=== PATIENT | male | born 1950 | race Caucasian/White ===

== ENCOUNTER 2022-01-23 10:25 | Inpatient (IN) | payer MEDICARE, SELFPAY ==
--- NOTE | ~2022-01-23 | FL_ITS ---
EXAMINATION: XR FLUOROSCOPY WITH IMAGES CLINICAL INFORMATION: Right ureteral stent placement. COMPARISON: CT abdomen and pelvis from 01/23/2022 TECHNIQUE: Fluoroscopy time: 32.6 sec DAP: 16.29 mGy Images: [address] Perez. FL/FL guidance in OR FINDINGS AND IMPRESSION: Fluoroscopic imaging equipment utilized during right ureteral stent insertion. Please refer to the procedure report. The saved images show well-positioned stent in place.
--- NOTE | ~2022-01-23 | CT_ITS ---
EXAMINATION: CT ABDOMEN AND PELVIS WITHOUT CONTRAST CLINICAL INFORMATION: Right flank pain with hematuria. COMPARISON: None TECHNIQUE: Multidetector volumetric imaging was performed from the superior aspect of the liver through the pubic symphysis. Sagittal and coronal reformatted images were obtained on the technologist's workstation. This CT examination was performed using dose optimization techniques as appropriate, variously including the following: *Automated exposure control *Adjustment of mA and/or kV according to patient size (this includes techniques or standardized protocols for targeted exams where dose is matched to indication/reason for exam; i.e. extremities or head) *Use of iterative reconstruction technique DLP: None given to mGy-cm FINDINGS: LUNG BASES: There is some atelectatic change in the lingula. No pleural or pericardial effusion. Heart normal size. Coronary artery calcification is present. LIVER, GALLBLADDER, AND BILIARY TREE: There are a few scattered low density lesions within the liver consistent with small cysts. No intrahepatic biliary ductal dilatation is present. The gallbladder is unremarkable with no evidence of radiopaque gallstones, gallbladder wall thickening, or obvious pericholecystic inflammatory changes. PANCREAS: Unremarkable. SPLEEN: Unremarkable. ADRENAL GLANDS: Unremarkable. KIDNEYS AND URETERS: There is mild right hydronephrosis. There is a 4 mm nonobstructing lower pole calculus. Perinephric stranding is present. There is hydroureter down to an obstructing calculus within the mid right ureter measuring approximately 8 x 5 mm in size with Hounsfield unit measurement of greater than 1200. Within the left ureter there is a nonobstructing 2 mm calculus within the lower pole. There are a few left renal cysts present. No left hydronephrosis or hydroureter is evident. There is perinephric stranding present. BLADDER: There is a 7 mm right anterior bladder diverticulum seen. GASTROINTESTINAL TRACT: No dilated loops of large or small bowel are evident. No free air or free fluid. There is a small hiatal hernia. No colonic or pericolonic inflammatory changes seen. The appendix appears unremarkable. ABDOMINAL WALL: Small fat-containing umbilical hernia. LYMPH NODES: No lymphadenopathy seen. VASCULAR: Mild aortoiliac plaque. No abdominal aortic aneurysm. PELVIC VISCERA: Prostate calcifications present. No suspicious mass. OSSEOUS STRUCTURES: No suspicious destructive bony lesions identified. Degenerative disc disease seen at the L5-S1 level. CT/CT abdomen pelvis wo con IMPRESSION: 8 x 5 mm mid right ureteral obstructing calculus with mild right hydronephrosis and hydroureter down to this point. Bilateral nephrolithiasis. 7 mm right anterior bladder diverticulum. Hepatic cysts. Significant degenerative disc disease L5-S1. Fleischner guidelines were followed.
[2022-01-23 10:34] VITALS: BP 165/80; PULSE 62; RESP 16; TEMP 36.4; O2SAT 97; BMI 30.5
[2022-01-23] MEDS: Acetaminophen 325 MG TABLET 975 MG PO (10:51)
[2022-01-23] MEDS: Ondansetron ODT 4 MG TAB.RAPDIS TRANSLINGU (10:51)
[2022-01-23 10:55] LABS: MANUAL DIFF FLAG NO
[2022-01-23 10:56] LABS: Appearance Urine CLEAR; Color Urine YELLOW; Glucose Urine UA 500 MG/DL (NEG); Leukocyte Esterase Urine NEG (NEG); Nitrite Urine NEG (NEG); PH 5.5 (5.0-8.0); Specific Gravity - Urine >= 1.030 (1.005-1.025); UACC Culture Trigger NO; Urine Blood 2+ (NEG); Urine Ketones 15 MG/DL (NEG); Urine Protein NEG (NEG-TRACE)
[2022-01-23 10:58] LABS: Basophils Percent Auto 0.2 % (0-2); Eosinophils Percent Auto 0.1 % (0-4); Hematocrit 42.6 % (42.0-52.0); Hemoglobin 14.2 g/dl (14.0-18.0); Imm Gran Abs Auto 0.09 X10*3/uL (0.00-0.03); Imm Gran Pct Auto 0.5 % (0.0-0.4); Lymphocytes Absolute Auto 1.3 X10*3/uL (1.2-4.9); Mean Corpuscular HGB Conc 33.3 g/dl (31.0-36.0); Mean Corpuscular Hemoglobin 30.3 pg (27.0-33.0); Mean Platelet Volume 10.3 fL (9.4-12.4); Monocytes Absolute Auto 0.9 X10*3/uL (0.1-1.2); Monocytes Percent Auto 5.2 % (2-11); Neutrophils Absolute Auto 15.6 x10*3/uL (2.0-8.3); Platelet Count 332 X10*3/uL (160-400); Red Blood Count 4.68 X10*6/uL (4.60-5.80); Red Cell Distribution Width 12.8 % (11.0-16.0)
[2022-01-23 11:08] LABS: Squamous Epithelial Cell Urine TRACE /LPF; WBC Urine 0-2 /HPF (0-4)
[2022-01-23 11:19] LABS: Anion Gap 16 (12-20); Blood Urea Nitrogen 29 mg/dL (9-16); Calcium 9.7 mg/dL (8.4-10.2); Carbon Dioxide 25 mmol/L (22-29); Chloride 99 mmol/L (96-108); Creatinine Clr Calc Pharmacy 52.9; Estimated Glomerular Filt Rate 44; Glucose Random 293 mg/dL (60-115); Potassium 4.4 mmol/L (3.3-5.1); Sodium 136 mmol/L (135-145)
--- NOTE | 2022-01-23 12:48 | ED.BACK ---
HPI - Back Pain/Injury General Chief Complaint: Back Pain/Injury Stated Complaint: side pain Time Seen by Provider: 01/23/22 12:39 Source: patient Mode of arrival: ambulatory Limitations: no limitations History of Present Illness HPI Narrative: 71-year-old male with history of renal colic, AFib, diabetes, rheumatoid arthritis on methotrexate here with reports of right-sided abdominal pain since last evening with nausea. No vomiting, urinary symptoms, diarrhea, constipation, fevers or chills. History of renal colic and feels similar. Patient tells me since being in the waiting room the pain has subsided Related Data Allergies Allergy/AdvReac Type Severity Reaction Status Date / Time No Known Allergies Allergy Verified 01/23/22 10:33 Review of Systems Review of Systems: Yes all other systems are reviewed and are negative Constitutional: Constitutional: Reports no additional constitutional complaints, Denies body ache(s), Denies chills, Denies fever(s), Denies headache(s) and Denies weakness Eyes: Eyes: Reports no additional eye complaints and Denies change in vision ENT: Reports system reviewed and no additional complaints, except as documented, Denies dizziness, Denies headache(s), Denies nasal congestion, Denies nasal discharge and Denies neck pain Cardiovascular: Cardiovascular: Reports no additional cardiovascular complaints, Denies chest pain, Denies leg edema and Denies dyspnea Respiratory: Respiratory: Reports no additional respiratory complaints, Denies cough and Denies dyspnea Gastrointestinal: Gastrointestinal: Reports no additional gastrointestinal complaints, Reports abdominal pain, Denies diarrhea, Reports nausea and Denies vomiting Genitourinary: Genitourinary: Denies urinary incontinence Musculoskeletal: Musculoskeletal: Reports no additional musculoskeletal complaints, Denies back pain, Denies arthralgias, Denies joint swelling, Denies neck pain, Denies numbness and Denies tingling Integumentary/Breasts: Skin/Breast: Reports system reviewed and no additional complaints, except as docu and Denies rash Neurologic: Reports system reviewed and no additional complaints, except as documented, Denies dizziness, Denies headache(s), Denies numbness, Denies tingling and Denies weakness PMFSH Past Medical History Attestation statement: The following information was validated with the patient. Source: old records reviewed and nursing notes reviewed Medical History A-fib Diabetes Kidney calculi Psoriasis Rheumatoid arthritis Social History Social History Advance Directives: No Advance Directives Information Provided: No Physical Exam Vital Signs: Vital Signs: Last Vital Signs Temp 97.6 F 01/23/22 10:34 Pulse 69 01/23/22 15:51 Resp 16 01/23/22 15:51 BP 141/77 H 01/23/22 15:51 Pulse Ox 97 01/23/22 15:51 BMI result Body Mass Index 30.5 Const: General: cooperative, healthy appearing, comfortable and no acute distress Orientation/consciousness: patient oriented x3 Limitations: no limitations HEENT: Head: Yes normal to inspection Ears: hearing grossly normal bilaterally General nose exam: Normal external nose present Face and sinus: Yes normal facial exam Mouth: Normal oral and palatal mucosa present Teeth and gingiva: dentition normal Throat: Yes posterior oropharynx normal, Yes tonsils normal and Yes uvula midline Eyes: General: appearance normal, both eyes and all related structures EOM: EOMs intact bilaterally Neck: Neck: Yes normal visual inspection, Yes full ROM, Yes no lymphadenopathy and Yes no meningeal signs Chest: Chest palpation & inspection: normal inspection of the chest Resp: Effort & Inspection: normal respiratory effort Auscultation: clear to auscultation bilaterally Cardio: Rate: regular rate Rhythm: regular rhythm Peripheral pulses: Peripheral pulses 2+ throughout GI: Inspection: Yes normal to inspection Palpation (GI): Soft to palpation and nontender : General: Yes no CVA tenderness Back/Spine/Pelvis: Back: no CVA tenderness Thoracic/Lumbar Spine: thoracic and lumbar spine normal to inspection Skin: General skin exam: no rashes or lesions noted Neuro: General: patient oriented x3, moves all extremities and no meningeal signs Extrem: General: Yes normal to inspection, Yes no pedal edema and Yes no calf tenderness Course Course Course Narrative: 72-year-old man here with reports of right pain with nausea since last night but resolved while the patient was waiting in the waiting room with a history of renal colic will check labs, UA, CT Reevaluation(s) Reevaluation #1: labs show mildly elevated creatinine and the BUN. No previous for comparison. Will give 1 L of fluid and reassess. mild hyperglycemia. Patient has underlying diabetes no evidence of DKA. mild leukocytosis likely reactive. Not for infection. CT shows a right-sided 8 x 5 mm mid ureter obstructive stone. Patient has no pain. will need urology follow-up and will d/w them prior to dispo Time: 13:50 Reevaluation #2: unfortunately the patient's creatinine and BUN are not improved. I spoke to Urology on-call Dr. Perez. Recommended admission with IV fluids and antibiotics and. Observation to determine if stone will pass independently. If not he will perform an intervention. Call out to Medicine to discuss for admission. at this time infection suspected. blood cultures and lactic acid ordered..Antibiotics ordered. Time: 15:45 MDM - Back Pain/Injury Medical Records Attestation: I reviewed the patient's medical records. Lab Data Attestation: I reviewed the patient's lab results. Result diagrams: 01/23/22 10:48 01/23/22 14:52 Labs: Lab Results 01/23/22 01/23/22 01/23/22 Range/Units 10:48 10:48 10:48 WBC 18.0 H (4.8-10.8) X10*3/uL RBC 4.68 (4.60-5.80) X10*6/uL Hgb 14.2 (14.0-18.0) g/dl Hct 42.6 (42.0-52.0) % MCV 91.0 (80.0-98.0) fL MCH 30.3 (27.0-33.0) pg MCHC 33.3 (31.0-36.0) g/dl RDW 12.8 (11.0-16.0) % Plt Count 332 (160-400) X10*3/uL MPV 10.3 (9.4-12.4) fL Immature Gran % (Auto) 0.5 H (0.0-0.4) % Neut % (Auto) 87.0 H (45-73) % Lymph % (Auto) 7.0 L (20-40) % [place] % (Auto) 5.2 (2-11) % Eos % (Auto) 0.1 (0-4) % Baso % (Auto) 0.2 (0-2) % Lymph # (Auto) 1.3 (1.2-4.9) X10*3/uL [place] # (Auto) 0.9 (0.1-1.2) X10*3/uL Eos # (Auto) 0.0 (0.0-0.4) X10*3/uL Baso # (Auto) 0.0 (0.0-0.2) X10*3/uL Abs Immat Gran (auto) 0.09 H (0.00-0.03) X10*3/uL Absolute Neuts (auto) 15.6 H (2.0-8.3) x10*3/uL Absolute Nucleated RBC 0.000 (0.0-0.012) X10*3/uL Nucleated RBC % (auto) 0.0 (0.0-0.2) /100WBC Sodium 136 (135-145) mmol/L Potassium 4.4 (3.3-5.1) mmol/L Chloride 99 (96-108) mmol/L Carbon Dioxide 25 (22-29) mmol/L Anion Gap 16 (12-20) BUN 29 H (9-16) mg/dL Creatinine 1.56 H (0.5-1.4) mg/dL Estim Creat Clear Calc 52.9 Estimated GFR 44 Random Glucose 293 H (60-115) mg/dL Calcium 9.7 (8.4-10.2) mg/dL Total Bilirubin 0.3 (0.0-1.0) mg/dL Direct Bilirubin 0.2 (0.0-0.5) mg/dL AST 12 (5-37) U/L ALT 13 (0-40) U/L Alkaline Phosphatase 83 (39-117) U/L Total Protein 7.3 (6.5-8.0) g/dL Albumin 4.2 (3.5-5.0) g/dL Urine Color YELLOW Urine Appearance CLEAR Urine pH 5.5 (5.0-8.0) Ur Specific [place] >= 1.030 H (1.005-1.025) Urine Protein NEG (NEG-TRACE) MG/DL Urine Glucose (UA) 500 H (NEG) MG/DL Urine Ketones 15 (NEG) MG/DL Urine Blood 2+ H (NEG) Urine Nitrite NEG (NEG) Ur Leukocyte Esterase NEG (NEG) Urine RBC 5-9 H (0) /HPF Urine WBC 0-2 (0-4) /HPF Ur Squamous Epith Cells TRACE /LPF Urine Bacteria NONE /LPF 01/23/22 Range/Units 14:52 WBC (4.8-10.8) X10*3/uL RBC (4.60-5.80) X10*6/uL Hgb (14.0-18.0) g/dl Hct (42.0-52.0) % MCV (80.0-98.0) fL MCH (27.0-33.0) pg MCHC (31.0-36.0) g/dl RDW (11.0-16.0) % Plt Count (160-400) X10*3/uL MPV (9.4-12.4) fL Immature Gran % (Auto) (0.0-0.4) % Neut % (Auto) (45-73) % Lymph % (Auto) (20-40) % [place] % (Auto) (2-11) % Eos % (Auto) (0-4) % Baso % (Auto) (0-2) % Lymph # (Auto) (1.2-4.9) X10*3/uL [place] # (Auto) (0.1-1.2) X10*3/uL Eos # (Auto) (0.0-0.4) X10*3/uL Baso # (Auto) (0.0-0.2) X10*3/uL Abs Immat Gran (auto) (0.00-0.03) X10*3/uL Absolute Neuts (auto) (2.0-8.3) x10*3/uL Absolute Nucleated RBC (0.0-0.012) X10*3/uL Nucleated RBC % (auto) (0.0-0.2) /100WBC Sodium 138 (135-145) mmol/L Potassium 4.5 (3.3-5.1) mmol/L Chloride 102 (96-108) mmol/L Carbon Dioxide 26 (22-29) mmol/L Anion Gap 15 (12-20) BUN 31 H (9-16) mg/dL Creatinine 1.46 H (0.5-1.4) mg/dL Estim Creat Clear Calc 56.5 Estimated GFR 47 Random Glucose 233 H (60-115) mg/dL Calcium 9.4 (8.4-10.2) mg/dL Total Bilirubin (0.0-1.0) mg/dL Direct Bilirubin (0.0-0.5) mg/dL AST (5-37) U/L ALT (0-40) U/L Alkaline Phosphatase (39-117) U/L Total Protein (6.5-8.0) g/dL Albumin (3.5-5.0) g/dL Urine Color Urine Appearance Urine pH (5.0-8.0) Ur Specific [place] (1.005-1.025) Urine Protein (NEG-TRACE) MG/DL Urine Glucose (UA) (NEG) MG/DL Urine Ketones (NEG) MG/DL Urine Blood (NEG) Urine Nitrite (NEG) Ur Leukocyte Esterase (NEG) Urine RBC (0) /HPF Urine WBC (0-4) /HPF Ur Squamous Epith Cells /LPF Urine Bacteria /LPF Imaging Data CT scan - abdomen: Attestation: I personally reviewed and interpreted this imaging study as follows: Radiologist's impression: IMPRESSION: 8 x 5 mm mid right ureteral obstructing calculus with mild right hydronephrosis and hydroureter down to this point. ? Bilateral nephrolithiasis. ? 7 mm right anterior bladder diverticulum. ? Hepatic cysts. ? Significant degenerative disc disease L5-S1.? ? Fleischner guidelines were followed. Discharge Plan Discharge Clinical Impression: Renal colic, Leukocytosis Patient Disposition: Admitted As Inpatient
[2022-01-23 13:08] LABS: Alanine Aminotransferase 13 U/L (0-40); Albumin Level 4.2 g/dL (3.5-5.0); Alkaline Phosphatase 83 U/L (39-117); Aspartate Amino Transferase 12 U/L (5-37); Bilirubin Direct 0.2 mg/dL (0.0-0.5); Bilirubin Total 0.3 mg/dL (0.0-1.0); Total Protein 7.3 g/dL (6.5-8.0)
[2022-01-23] MEDS: 0.9 % Sodium Chloride 1,000 ML 999 ML IV (13:58)
--- NOTE | 2022-01-23 14:12 | PC.NURSE ---
nadm ns infusing, skin wpd, no n/v, alert, aware of care plan
[2022-01-23 15:22] LABS: Anion Gap 15 (12-20); Blood Urea Nitrogen 31 mg/dL (9-16); Calcium 9.4 mg/dL (8.4-10.2); Carbon Dioxide 26 mmol/L (22-29); Chloride 102 mmol/L (96-108); Creatinine Clr Calc Pharmacy 56.5; Estimated Glomerular Filt Rate 47; Glucose Random 233 mg/dL (60-115); Potassium 4.5 mmol/L (3.3-5.1); Sodium 138 mmol/L (135-145)
[2022-01-23 15:51] VITALS: BP 141/77; PULSE 69; RESP 16; O2SAT 97
--- NOTE | 2022-01-23 16:12 | P.HPHOSP_ITS ---
History of Present Illness Date of Service: 01/23/22 Attending physician on admission: [facility] Chief Complaint: Flank pain This is a 71-year-old male who presents to the emergency department with flank pain. Patient states that his pain began last evening around 17:00 the pain is located in his right groin and radiates part way around his abdomen to his back. The pain is associated with nausea. He denies any vomiting, fever, chills. He has had kidney stones in the past and the pain is similar to previous episodes but more severe. For this reason he presented to the emergency department for evaluation CT scan in the emergency department showed a large right-sided kidney stone with associated mild hydronephrosis. Lab work was significant for elevated white count at 18,000, he has remained afebrile. Creatinine was elevated at 1.56, patient denies any known history of renal dysfunction. He was treated with empiric antibiotics, , antiemetics and IV fluid. The case was discussed with Urology who recommended admission to the medicine team. Review of Systems Review of Systems: Yes all other systems are reviewed and are negative Constitutional: Constitutional: Denies chills and Denies fever(s) Cardiovascular: Cardiovascular: Denies chest pain, Denies palpitations and Denies dyspnea Respiratory: Respiratory: Denies cough and Denies dyspnea Gastrointestinal: Gastrointestinal: Reports abdominal pain, Denies diarrhea, Reports nausea and Denies vomiting Genitourinary: Genitourinary: Denies dysuria Endocrine: Endocrine: Denies palpitations [facility] Medical History (Updated 01/23/22 @ 16:15 by EVANGELIST Harman) A-fib Diabetes HTN (hypertension) Kidney calculi Psoriasis Rheumatoid arthritis Functional capacity: independent ambulation Family History Brother Heart disease Social History (Updated 01/23/22 @ 16:19 by EVANGELIST Harman) Alcohol intake: never Patient Tobacco Use Status: Never used Tobacco Use of substances other than those prescribed or required for medical reasons: No Advance Directives: No Advance Directives Information Provided: No Meds Allergies Allergy/AdvReac Type Severity Reaction Status Date / Time No Known Allergies Allergy Verified 01/23/22 10:33 Active Medications: Current Medications Acetaminophen (Acetaminophen 325 Mg Tablet) 650 mg PO Q6H PRN PRN Reason: Pain, Mild (Pain Scale 1-3) Dextrose (Dextrose 50 % 25 Gm/50 Ml Syringe) 25 gm IVPUSH Q15M PRN; Protocol PRN Reason: per Hypoglycemia Standing Ord. Docusate Sodium (Docusate Sodium 100 Mg Capsule) 100 mg PO DAILY PRN PRN Reason: Constipation Glucose (Glucose Gel 15 Gm Gel..Gram.) 15 gm PO Q15M PRN; Protocol PRN Reason: per Hypoglycemia Standing Ord. Ceftriaxone Sodium 1 gm/ (Sodium Chloride) 50 mls @ 100 mls/hr IV Q24H [facility] Lactated Ringer's (Lr) 1,000 mls @ 100 mls/hr IVCONT .Q10H [facility] Insulin Human Lispro (Insulin Lispro 100 Unit/Ml 3 Ml Vial) 0 unit SUBCUT QIDACHS [facility]; Protocol Morphine Sulfate (Morphine Sulfate 2 Mg/Ml Cartridge) 2 mg IVPUSH Q4H PRN; Protocol PRN Reason: Pain, Severe (Pain Scale 7-10) Ondansetron HCl (Ondansetron Hcl 4 Mg/2 Ml Vial) 4 mg IVPUSH Q8H PRN PRN Reason: Nausea and Vomiting Pharmacy Consult (Consult Rx Perform Med Rec) 1 each MISCELLANE ONCE PRN PRN Reason: Consult order Sodium Chloride (0.9 % Sodium Chloride Flush 3 Ml Syringe) [facility] Medications Medication Instructions Recorded Confirmed Last Taken Type dabigatran etexilate 150 mg 150 mg PO BID 01/23/22 01/23/22 01/23/22 History capsule (Pradaxa) flecainide 100 mg tablet 100 mg PO Q12H 01/23/22 01/23/22 01/23/22 History folic acid 1 mg tablet 1 mg PO DAILY 01/23/22 01/23/22 01/23/22 History glipizide 10 mg tablet 10 mg PO BID 01/23/22 01/23/22 01/23/22 History lisinopril 20 1 tab PO DAILY 01/23/22 01/23/22 01/23/22 History mg-hydrochlorothiazide 12.5 mg tablet metformin 1,000 mg tablet 1,000 mg PO BID 01/23/22 01/23/22 01/23/22 History methotrexate sodium 2.5 mg tablet 10 mg PO QWEEK 01/23/22 01/23/22 01/17/22 History metoprolol tartrate 50 mg tablet 75 mg PO BID 01/23/22 01/23/22 01/23/22 History pravastatin 80 mg tablet 80 mg PO DAILY 01/23/22 01/23/22 01/23/22 History Physical Exam Vital Signs and Narrative: Vital Signs: Last Vital Signs Temp 97.6 F 01/23/22 10:34 Pulse 69 01/23/22 15:51 Resp 16 01/23/22 15:51 BP 141/77 H 01/23/22 15:51 Pulse Ox 97 01/23/22 15:51 BMI result Body Mass Index 30.5 Const: General: cooperative, healthy appearing, comfortable, alert and awake Nutritional Appearance: overweight Orientation/consciousness: patient oriented x3 Eyes: Pupils: Equal, round and reactive pupils present Resp: Effort & Inspection: normal respiratory effort and able to speak in complete sentences Auscultation: clear to auscultation bilaterally Cardio: Rate: regular rate Heart sounds: S1 normal heart sound present and S2 normal heart sound present GI: Inspection: No distended Palpation (GI): Soft to palpation and nontender Neuro: General: patient oriented x3 and CN's II-XI intact bilaterally Cranial nerves: Yes Equal, round and reactive pupils present Extrem: General: Yes no pedal edema Results Labs CBC and Chem 7: 01/23/22 10:48 01/23/22 14:52 Labs: Laboratory Results - last 24 hr 01/23/22 01/23/22 01/23/22 10:48 10:48 10:48 MCV 91.0 MCH 30.3 MCHC 33.3 RDW 12.8 Plt Count 332 MPV 10.3 Immature Gran % (Auto) 0.5 H Neut % (Auto) 87.0 H Lymph % (Auto) 7.0 L [place] % (Auto) 5.2 Eos % (Auto) 0.1 Baso % (Auto) 0.2 Lymph # (Auto) 1.3 [place] # (Auto) 0.9 Eos # (Auto) 0.0 Baso # (Auto) 0.0 Abs Immat Gran (auto) 0.09 H Absolute Neuts (auto) 15.6 H Absolute Nucleated RBC 0.000 Nucleated RBC % (auto) 0.0 Anion Gap 16 Estim Creat Clear Calc 52.9 Estimated GFR 44 Random Glucose 293 H Calcium 9.7 Total Bilirubin 0.3 Direct Bilirubin 0.2 AST 12 ALT 13 Alkaline Phosphatase 83 Total Protein 7.3 Albumin 4.2 Urine Color YELLOW Urine Appearance CLEAR Urine pH 5.5 Ur Specific [place] >= 1.030 H Urine Protein NEG Urine Glucose (UA) 500 H Urine Ketones 15 Urine Blood 2+ H Urine Nitrite NEG Ur Leukocyte Esterase NEG Urine RBC 5-9 H Urine WBC 0-2 Ur Squamous Epith Cells TRACE Urine Bacteria NONE 01/23/22 14:52 MCV MCH MCHC RDW Plt Count MPV Immature Gran % (Auto) Neut % (Auto) Lymph % (Auto) [place] % (Auto) Eos % (Auto) Baso % (Auto) Lymph # (Auto) [place] # (Auto) Eos # (Auto) Baso # (Auto) Abs Immat Gran (auto) Absolute Neuts (auto) Absolute Nucleated RBC Nucleated RBC % (auto) Anion Gap 15 Estim Creat Clear Calc 56.5 Estimated GFR 47 Random Glucose 233 H Calcium 9.4 Total Bilirubin Direct Bilirubin AST ALT Alkaline Phosphatase Total Protein Albumin Urine Color Urine Appearance Urine pH Ur Specific [place] Urine Protein Urine Glucose (UA) Urine Ketones Urine Blood Urine Nitrite Ur Leukocyte Esterase Urine RBC Urine WBC Ur Squamous Epith Cells Urine Bacteria Imaging Radiologist's Impressions: Impressions Abdomen/Pelvis CT 01/23/22 13:04 IMPRESSION: 8 x 5 mm mid right ureteral obstructing calculus with mild right hydronephrosis and hydroureter down to this point. Bilateral nephrolithiasis. 7 mm right anterior bladder diverticulum. Hepatic cysts. Significant degenerative disc disease L5-S1. Fleischner guidelines were followed. Assessment and Plan (1) Renal colic: Status: Acute Plan This is a 71-year-old male with history of diabetes, rheumatoid arthritis recently started on methotrexate, hypertension, atrial fibrillation on Pradaxa who presents to the emergency department with right-sided flank pain found to have right kidney stones associated mild hydronephrosis renal colic secondary to right kidney stone with associated hydronephrosis Urology consultation, will likely need intervention given size of stone UA not suggestive of infection, but will continue empiric ceftriaxone for now IVF, antiemetics, IV analgesia Trend BMP will start flomax NPO at midnight for possible procedure tomorrow Renal insufficiency/possible KYLER pt denies h/o of known kidney disease, but no baseline renal function in system for comparison will hold Lisinopril/HCTZ for now follow renal function gentle IVF PAF Will hold pradaxa in anticipation of procedure Continue flecainide, metoprolol HTN lisinopril/HCTZ on hold for possible KYLER continue metoprolol monitor BP closely DM Hold metformin, glipizide SSI, POCs RA continue methotrexate HLD continue statin DVT ppx - mechanical devices, pradaxa on hold for possible procedure Code status - full code Attending - Dr. Zavaleta Due to immune compromised with RA on methotrexate and DM patient at risk for developing sepsis, needs close monitoring and likely urology intervention for large kidney stone and monitoring of renal function and will likely require 2 midnight stay in hospital. Quality Stroke Does the patient have a stroke diagnosis?: No VTE Prior VTE?: No VTE Risk Level:: Medical - moderate - high VTE Device Contraindication: N/A - Device Ordered VTE Drug Contraindication: Treatment Not Indicated
--- NOTE | 2022-01-23 16:24 | PHA.MEDREC ---
Pharmacy Consult ? Medication Reconciliation Pharmacy has completed the medication reconciliation. Patient had a list at bedside along with a fill history at the [facility].
[2022-01-23 17:22] LABS: Glucose, Whole Blood 184 mg/dL (60-115)
[2022-01-23 17:42] LABS: Lactic Acid 1.4 mmol/L (0.5-2.0)
[2022-01-23 17:49] LABS: COVID-19 Test Negative (Negative)
[2022-01-23 18:32] VITALS: BP 145/64; PULSE 66; RESP 16; TEMP 36.8; O2SAT 98
[2022-01-23 18:54] VITALS: BP 158/73; PULSE 69; RESP 18; TEMP 36.4; O2SAT 98
[2022-01-23] MEDS: cefTRIAXone sodium 1 GM in 0.9 % Sodium Chloride 50 ML IV (19:12)
[2022-01-23] MEDS: Lactated Ringers 1,000 ML 125 ML IVCONT (19:18)
[2022-01-23 20:08] LABS: Glucose, Whole Blood 174 mg/dL (60-115)
[2022-01-23] MEDS: Metoprolol Tartrate 25 MG TABLET 75 MG PO (20:32)
[2022-01-23] MEDS: Tamsulosin HCL 0.4 MG CAPSULE PO (20:32)
[2022-01-23] MEDS: Insulin Lispro 100 UNIT/ML 3 ML VIAL SUBCUT (20:32)
[2022-01-23] MEDS: Flecainide Acetate 50 MG TABLET 100 MG PO (20:32)
[2022-01-23 23:32] VITALS: BP 117/56; RESP 18; TEMP 36.3; O2SAT 97
[2022-01-24] VITALS (9 sets, daily range): BP systolic 92–174; BP diastolic 54–81; PULSE 63–84; RESP 16–18; TEMP 36.1–36.6; O2SAT 94–97
[2022-01-24] MEDS: Lactated Ringers 1,000 ML 125 ML IVCONT ×3 (03:18→23:52)
[2022-01-24 05:23] LABS: Hematocrit 34.8 % (42.0-52.0); Hemoglobin 11.4 g/dl (14.0-18.0); Mean Corpuscular HGB Conc 32.8 g/dl (31.0-36.0); Mean Corpuscular Hemoglobin 30.3 pg (27.0-33.0); Mean Corpuscular Volume 92.6 fL (80.0-98.0); Mean Platelet Volume 10.5 fL (9.4-12.4); Platelet Count 225 X10*3/uL (160-400); Red Blood Count 3.76 X10*6/uL (4.60-5.80); Red Cell Distribution Width 12.9 % (11.0-16.0)
[2022-01-24 05:42] LABS: Anion Gap 15 (12-20); Blood Urea Nitrogen 24 mg/dL (9-16); Calcium 9.1 mg/dL (8.4-10.2); Carbon Dioxide 26 mmol/L (22-29); Chloride 102 mmol/L (96-108); Creatinine Clr Calc Pharmacy 82.5; Estimated Glomerular Filt Rate > 60; Glucose Random 240 mg/dL (60-115); Potassium 4.1 mmol/L (3.3-5.1); Sodium 139 mmol/L (135-145)
[2022-01-24 07:36] LABS: Glucose, Whole Blood 205 mg/dL (60-115)
[2022-01-24] MEDS: Insulin Lispro 100 UNIT/ML 3 ML VIAL SUBCUT ×3 (08:21→19:54)
[2022-01-24] MEDS: Metoprolol Tartrate 25 MG TABLET 75 MG PO ×2 (08:22→19:54)
--- NOTE | 2022-01-24 09:18 | P.PNIM_ITS ---
Subjective Subjective Date of Service: 01/24/22 Review of Systems Follow up renal stone No pain Urinating fine no nausea or vomiting Physical Exam Vital Signs: Vital Signs: Last Vital Signs Temp 97 F 01/24/22 07:42 Pulse 74 01/24/22 07:42 Resp 18 01/24/22 07:42 BP 116/70 01/24/22 07:42 Pulse Ox 97 01/24/22 07:42 BMI result Body Mass Index 30.5 Appearing in no acute distress lung sounds are clear to auscultation heart regular rate rhythm, clear S1, S2 positive bowel sounds, abdomen is soft, nontender neuro patient is alert x3, no focal deficits Objective Data Active Medications Acetaminophen (Acetaminophen 325 Mg Tablet) 650 mg PO Q6H PRN PRN Reason: Pain, Mild (Pain Scale 1-3) Dextrose (Dextrose 50 % 25 Gm/50 Ml Syringe) 25 gm IVPUSH Q15M PRN; Protocol PRN Reason: per Hypoglycemia Standing Ord. Docusate Sodium (Docusate Sodium 100 Mg Capsule) 100 mg PO DAILY PRN PRN Reason: Constipation Flecainide Acetate (Flecainide Acetate 50 Mg Tablet) 100 mg PO Q12H [facility] Last Admin: 01/24/22 04:47 Dose: Not Given Documented by: CARLOS Non-Admin Reason: NPO Folic Acid (Folic Acid 1 Mg Tablet) 1 mg PO DAILY [facility] Last Admin: 01/24/22 08:22 Dose: Not Given Documented by: ALLIE Non-Admin Reason: NPO Glucose (Glucose Gel 15 Gm Gel..Gram.) 15 gm PO Q15M PRN; Protocol PRN Reason: per Hypoglycemia Standing Ord. Ceftriaxone Sodium 1 gm/ (Sodium Chloride) 50 mls @ 100 mls/hr IV Q24H [facility] Lactated Ringer's (Lr) 1,000 mls @ 125 mls/hr IVCONT .Q8H [facility] Last Admin: 01/24/22 03:18 Dose: 125 mls/hr Documented by: CARLOS Insulin Human Lispro (Insulin Lispro 100 Unit/Ml 3 Ml Vial) 0 unit SUBCUT QIDACHS [facility]; Protocol Last Admin: 01/24/22 08:21 Dose: 2 unit Documented by: ALLIE Comments: patient NPO Methotrexate (Methotrexate Sodium 2.5 Mg Tablet) 10 mg PO Q7D [facility] Last Admin: 01/24/22 08:22 Dose: Not Given Documented by: ALLIE Non-Admin Reason: NPO Metoprolol Tartrate (Metoprolol Tartrate 25 Mg Tablet) 75 mg PO BID [facility]; Protocol Last Admin: 01/24/22 08:22 Dose: 75 mg Documented by: ALLIE Morphine Sulfate (Morphine Sulfate 2 Mg/Ml Cartridge) 2 mg IVPUSH Q4H PRN; Protocol PRN Reason: Pain, Severe (Pain Scale 7-10) Ondansetron HCl (Ondansetron Hcl 4 Mg/2 Ml Vial) 4 mg IVPUSH Q8H PRN PRN Reason: Nausea and Vomiting Pharmacy Consult (Consult Rx Perform Med Rec) 1 each MISCELLANE ONCE PRN PRN Reason: Consult order Pravastatin Sodium (Pravastatin Sodium 80 Mg Tablet) 80 mg PO DAILY [facility] Last Admin: 01/24/22 08:22 Dose: Not Given Documented by: ALLIE Non-Admin Reason: NPO Sodium Chloride (0.9 % Sodium Chloride Flush 3 Ml Syringe) 3 ml IVFLUSH QSHIFT [facility] Last Admin: 01/24/22 08:22 Dose: Not Given Documented by: ALLIE Non-Admin Reason: IV Running Tamsulosin HCl (Tamsulosin Hcl 0.4 Mg Capsule) 0.4 mg PO BEDTIME [facility] Last Admin: 01/23/22 20:32 Dose: 0.4 mg Documented by: CARLOS Labs CBC & Chem 7: 01/24/22 05:01 01/24/22 05:01 Labs: Laboratory Results - last 24 hr 01/23/22 01/23/22 01/23/22 10:48 10:48 10:48 MCV 91.0 MCH 30.3 MCHC 33.3 RDW 12.8 Plt Count 332 MPV 10.3 Immature Gran % (Auto) 0.5 H Neut % (Auto) 87.0 H Lymph % (Auto) 7.0 L [place] % (Auto) 5.2 Eos % (Auto) 0.1 Baso % (Auto) 0.2 Lymph # (Auto) 1.3 [place] # (Auto) 0.9 Eos # (Auto) 0.0 Baso # (Auto) 0.0 Abs Immat Gran (auto) 0.09 H Absolute Neuts (auto) 15.6 H Absolute Nucleated RBC 0.000 Nucleated RBC % (auto) 0.0 Anion Gap 16 Estim Creat Clear Calc 52.9 Estimated GFR 44 POC Glucose Random Glucose 293 H Lactic Acid Calcium 9.7 Total Bilirubin 0.3 Direct Bilirubin 0.2 AST 12 ALT 13 Alkaline Phosphatase 83 Total Protein 7.3 Albumin 4.2 Urine Color YELLOW Urine Appearance CLEAR Urine pH 5.5 Ur Specific [place] >= 1.030 H Urine Protein NEG Urine Glucose (UA) 500 H Urine Ketones 15 Urine Blood 2+ H Urine Nitrite NEG Ur Leukocyte Esterase NEG Urine RBC 5-9 H Urine WBC 0-2 Ur Squamous Epith Cells TRACE Urine Bacteria NONE COVID-19 (AVINASH) COVID-19 Clin Com 01/23/22 01/23/22 01/23/22 14:52 17:10 17:25 MCV MCH MCHC RDW Plt Count MPV Immature Gran % (Auto) Neut % (Auto) Lymph % (Auto) [place] % (Auto) Eos % (Auto) Baso % (Auto) Lymph # (Auto) [place] # (Auto) Eos # (Auto) Baso # (Auto) Abs Immat Gran (auto) Absolute Neuts (auto) Absolute Nucleated RBC Nucleated RBC % (auto) Anion Gap 15 Estim Creat Clear Calc 56.5 Estimated GFR 47 POC Glucose 184 H Random Glucose 233 H Lactic Acid Calcium 9.4 Total Bilirubin Direct Bilirubin AST ALT Alkaline Phosphatase Total Protein Albumin Urine Color Urine Appearance Urine pH Ur Specific [place] Urine Protein Urine Glucose (UA) Urine Ketones Urine Blood Urine Nitrite Ur Leukocyte Esterase Urine RBC Urine WBC Ur Squamous Epith Cells Urine Bacteria COVID-19 (AVINASH) Negative COVID-19 Clin Com See Note 01/23/22 01/23/22 01/24/22 17:26 18:57 05:01 MCV 92.6 MCH 30.3 MCHC 32.8 RDW 12.9 Plt Count 225 D MPV 10.5 Immature Gran % (Auto) Neut % (Auto) Lymph % (Auto) [place] % (Auto) Eos % (Auto) Baso % (Auto) Lymph # (Auto) [place] # (Auto) Eos # (Auto) Baso # (Auto) Abs Immat Gran (auto) Absolute Neuts (auto) Absolute Nucleated RBC 0.000 Nucleated RBC % (auto) 0.0 Anion Gap Estim Creat Clear Calc Estimated GFR POC Glucose 174 H Random Glucose Lactic Acid 1.4 Calcium Total Bilirubin Direct Bilirubin AST ALT Alkaline Phosphatase Total Protein Albumin Urine Color Urine Appearance Urine pH Ur Specific [place] Urine Protein Urine Glucose (UA) Urine Ketones Urine Blood Urine Nitrite Ur Leukocyte Esterase Urine RBC Urine WBC Ur Squamous Epith Cells Urine Bacteria COVID-19 (AVINASH) COVID-19 Clin Com 01/24/22 01/24/22 05:01 07:16 MCV MCH MCHC RDW Plt Count MPV Immature Gran % (Auto) Neut % (Auto) Lymph % (Auto) [place] % (Auto) Eos % (Auto) Baso % (Auto) Lymph # (Auto) [place] # (Auto) Eos # (Auto) Baso # (Auto) Abs Immat Gran (auto) Absolute Neuts (auto) Absolute Nucleated RBC Nucleated RBC % (auto) Anion Gap 15 Estim Creat Clear Calc 82.5 Estimated GFR > 60 POC Glucose 205 H Random Glucose 240 H Lactic Acid Calcium 9.1 Total Bilirubin Direct Bilirubin AST ALT Alkaline Phosphatase Total Protein Albumin Urine Color Urine Appearance Urine pH Ur Specific [place] Urine Protein Urine Glucose (UA) Urine Ketones Urine Blood Urine Nitrite Ur Leukocyte Esterase Urine RBC Urine WBC Ur Squamous Epith Cells Urine Bacteria COVID-19 (AVINASH) COVID-19 Clin Com Assessment and Plan (1) Ureteral stone with hydronephrosis: Status: Acute Plan This is a 71-year-old male with history of diabetes, rheumatoid arthritis recently started on methotrexate, hypertension, atrial fibrillation on Pradaxa who presents to the emergency department with right-sided flank pain found to have right kidney stones associated mild hydronephrosis renal colic secondary to right kidney stone with associated hydronephrosis Urology consultation, will likely need intervention given size of stone UA not suggestive of infection, but will continue empiric ceftriaxone for now IVF, antiemetics, IV analgesia Trend BMP continue flomax NPO, cystoscopy today Renal insufficiency/possible KYLER. Back to baseline pt denies h/o of known kidney disease, but no baseline renal function in system for comparison will hold Lisinopril/HCTZ for now follow renal function gentle IVF PAF Will hold pradaxa in anticipation of procedure Continue flecainide, metoprolol HTN lisinopril/HCTZ on hold for KYLER continue metoprolol monitor BP closely DM Hold metformin, glipizide SSI, POCs RA continue methotrexate HLD continue statin DVT ppx -? mechanical devices, pradaxa on hold for possible procedure Code status - full code Attending - Dr. Zavaleta Patient requires continued hospitalization for possible urological procedure due to retained stone, urology consultation is pending and patient is continued on IV antibiotics Quality Stroke Does the patient have a stroke diagnosis?: No VTE Prior VTE?: No VTE Risk Level:: Medical - moderate - high VTE Device Contraindication: N/A - Device Ordered VTE Drug Contraindication: Treatment Not Indicated
[2022-01-24 11:24] LABS: Glucose, Whole Blood 181 mg/dL (60-115)
--- NOTE | 2022-01-24 11:48 | PM.UROCN ---
History of Present Illness Consult details Consult date: 01/24/22 Narrative: Luis Enrique is a 71-year-old male. Presents with right-sided flank pain. Prior history stone passage Without intervention Admitted for pain control and elevated WBC WBC and creatinine have resolved with antibiotics and rehydration CT scan with mild hydroureteronephrosis and mid ureter right 6 mm stone Low probability of passage Recommend cystoscopy, retrograde with stent placement Questions answered Review of Systems Constitutional: Constitutional: Reports as per HPI and Reports no additional constitutional complaints Cardiovascular: Cardiovascular: Reports as per HPI and Reports no additional cardiovascular complaints Respiratory: Respiratory: Reports as per HPI and Reports no additional respiratory complaints Gastrointestinal: Gastrointestinal: Reports as per HPI and Reports no additional gastrointestinal complaints Genitourinary: Genitourinary: Reports as per HPI Musculoskeletal: Musculoskeletal: Reports no additional musculoskeletal complaints and Reports as per HPI Neurologic: Reports system reviewed and no additional complaints, except as documented and Reports as per HPI [facility] Past Medical History Medical History (Updated 01/24/22 @ 11:50 by Ebenezer Perez MD) A-fib Diabetes HTN (hypertension) Kidney calculi Psoriasis Rheumatoid arthritis Functional capacity: independent ambulation Family History Family History Brother Heart disease Social History Social History (Updated 01/23/22 @ 16:19 by EVANGELIST Harman) Household Members: None Housing: Condominium Do you presently have visiting nurse or other home services: No Alcohol intake: never Patient Tobacco Use Status: Never used Tobacco Use of substances other than those prescribed or required for medical reasons: No Currently Displaying Signs/Symptoms of Drug Intoxication Withdrawal: No Have you been hit, kicked, punched, or otherwise hurt by someone within the past year? If so, by whom?: No Do you feel safe in your current relationship?: No Current Relationship Is there a partner from a previous relationship who is making you feel unsafe now?: No Are you made to feel afraid or neglected: No Advance Directives: No Advance Directives Information Provided: No Do you have thoughts of harming others: None Do you have a plan to hurt others: No Plan Recently lost weight without trying: No Nutrition Risks: No Nutritional Risk Meds Allergies Allergy/AdvReac Type Severity Reaction Status Date / Time No Known Allergies Allergy Verified 01/23/22 10:33 Active Medications: Current Medications Acetaminophen (Acetaminophen 325 Mg Tablet) 650 mg PO Q6H PRN PRN Reason: Pain, Mild (Pain Scale 1-3) Dextrose (Dextrose 50 % 25 Gm/50 Ml Syringe) 25 gm IVPUSH Q15M PRN; Protocol PRN Reason: per Hypoglycemia Standing Ord. Docusate Sodium (Docusate Sodium 100 Mg Capsule) 100 mg PO DAILY PRN PRN Reason: Constipation Flecainide Acetate (Flecainide Acetate 50 Mg Tablet) 100 mg PO Q12H [facility] Last Admin: 01/24/22 04:47 Dose: Not Given Documented by: Folic Acid (Folic Acid 1 Mg Tablet) 1 mg PO DAILY [facility] Last Admin: 01/24/22 08:22 Dose: Not Given Documented by: Glucose (Glucose Gel 15 Gm Gel..Gram.) 15 gm PO Q15M PRN; Protocol PRN Reason: per Hypoglycemia Standing Ord. Ceftriaxone Sodium 1 gm/ (Sodium Chloride) 50 mls @ 100 mls/hr IV Q24H [facility] Lactated Ringer's (Lr) 1,000 mls @ 125 mls/hr IVCONT .Q8H [facility] Last Infusion: 01/24/22 11:24 Dose: Infused Documented by: Levofloxacin (Levaquin) 500 mg in 100 mls @ 100 mls/hr IV PREOP ONE Stop: 01/24/22 12:17 Insulin Human Lispro (Insulin Lispro 100 Unit/Ml 3 Ml Vial) 0 unit SUBCUT QIDACHS [facility]; Protocol Last Admin: 01/24/22 11:39 Dose: Not Given Documented by: Methotrexate (Methotrexate Sodium 2.5 Mg Tablet) 10 mg PO Q7D [facility] Last Admin: 01/24/22 08:22 Dose: Not Given Documented by: Metoprolol Tartrate (Metoprolol Tartrate 25 Mg Tablet) 75 mg PO BID [facility]; Protocol Last Admin: 01/24/22 08:22 Dose: 75 mg Documented by: Morphine Sulfate (Morphine Sulfate 2 Mg/Ml Cartridge) 2 mg IVPUSH Q4H PRN; Protocol PRN Reason: Pain, Severe (Pain Scale 7-10) Ondansetron HCl (Ondansetron Hcl 4 Mg/2 Ml Vial) 4 mg IVPUSH Q8H PRN PRN Reason: Nausea and Vomiting Pharmacy Consult (Consult Rx Perform Med Rec) 1 each MISCELLANE ONCE PRN PRN Reason: Consult order Pravastatin Sodium (Pravastatin Sodium 80 Mg Tablet) 80 mg PO DAILY [facility] Last Admin: 01/24/22 08:22 Dose: Not Given Documented by: Sodium Chloride (0.9 % Sodium Chloride Flush 3 Ml Syringe) 3 ml IVFLUSH QSHIFT [facility] Last Admin: 01/24/22 08:22 Dose: Not Given Documented by: Tamsulosin HCl (Tamsulosin Hcl 0.4 Mg Capsule) 0.4 mg PO BEDTIME [facility] Last Admin: 01/23/22 20:32 Dose: 0.4 mg Documented by: Home Medications Medication Instructions Recorded Confirmed Last Taken Type dabigatran etexilate 150 mg 150 mg PO BID 01/23/22 01/23/22 01/23/22 History capsule (Pradaxa) flecainide 100 mg tablet 100 mg PO Q12H 01/23/22 01/23/22 01/23/22 History folic acid 1 mg tablet 1 mg PO DAILY 01/23/22 01/23/22 01/23/22 History glipizide 10 mg tablet 10 mg PO BID 01/23/22 01/23/22 01/23/22 History lisinopril 20 1 tab PO DAILY 01/23/22 01/23/22 01/23/22 History mg-hydrochlorothiazide 12.5 mg tablet metformin 1,000 mg tablet 1,000 mg PO BID 01/23/22 01/23/22 01/23/22 History methotrexate sodium 2.5 mg tablet 10 mg PO QWEEK 01/23/22 01/23/22 01/17/22 History metoprolol tartrate 50 mg tablet 75 mg PO BID 01/23/22 01/23/22 01/23/22 History pravastatin 80 mg tablet 80 mg PO DAILY 01/23/22 01/23/22 01/23/22 History Physical Exam Vital Signs: Vital Signs: Last Vital Signs Temp 97.8 F 01/24/22 11:31 Pulse 63 01/24/22 11:31 Resp 18 01/24/22 11:31 BP 121/65 01/24/22 11:31 Pulse Ox 97 01/24/22 11:31 BMI result Body Mass Index 30.5 Const: General: cooperative, healthy appearing, comfortable and no acute distress Orientation/consciousness: patient oriented x3 HEENT: Face and sinus: Yes normal facial exam Mouth: moist mucous membranes Neck: Neck: Yes normal visual inspection, Yes full ROM and Yes trachea midline Chest: Chest palpation & inspection: normal inspection of the chest Resp: Effort & Inspection: normal respiratory effort, able to speak in complete sentences and no respiratory distress GI: Inspection: Yes normal to inspection Back/Spine/Pelvis: Cervical Spine: normal cervical lordosis Thoracic/Lumbar Spine: thoracic and lumbar spine normal to inspection Skin: General skin exam: no rashes or lesions noted Neuro: General: patient oriented x3, tone normal and moves all extremities Extrem: General: Yes normal to inspection and Yes capillary refill normal Results Labs Result diagrams: 01/24/22 05:01 01/24/22 05:01 Labs: Abnormal lab results 01/23/22 01/23/22 01/23/22 Range/Units 14:52 17:10 18:57 RBC (4.60-5.80) X10*6/uL Hgb (14.0-18.0) g/dl Hct (42.0-52.0) % BUN 31 H (9-16) mg/dL Creatinine 1.46 H (0.5-1.4) mg/dL POC Glucose 184 H 174 H (60-115) mg/dL Random Glucose 233 H (60-115) mg/dL 01/24/22 01/24/22 01/24/22 Range/Units 05:01 05:01 07:16 RBC 3.76 L (4.60-5.80) X10*6/uL Hgb 11.4 L (14.0-18.0) g/dl Hct 34.8 L (42.0-52.0) % BUN 24 H (9-16) mg/dL Creatinine (0.5-1.4) mg/dL POC Glucose 205 H (60-115) mg/dL Random Glucose 240 H (60-115) mg/dL 01/24/22 Range/Units 11:20 RBC (4.60-5.80) X10*6/uL Hgb (14.0-18.0) g/dl Hct (42.0-52.0) % BUN (9-16) mg/dL Creatinine (0.5-1.4) mg/dL POC Glucose 181 H (60-115) mg/dL Random Glucose (60-115) mg/dL Short CBC 04/16/22 Range/Units 05:01 WBC 9.0 (4.8-10.8) X10*3/uL Hgb 11.4 L (14.0-18.0) g/dl Hct 34.8 L (42.0-52.0) % Plt Count 225 D (160-400) X10*3/uL BMP 01/23/22 01/24/22 14:52 05:01 Sodium 138 139 Potassium 4.5 4.1 Chloride 102 102 Carbon Dioxide 26 26 BUN 31 H 24 H Creatinine 1.46 H 1.00 Calcium 9.4 9.1 Liver Function 01/23/22 Range/Units 10:48 Total Bilirubin 0.3 (0.0-1.0) mg/dL Direct Bilirubin 0.2 (0.0-0.5) mg/dL AST 12 (5-37) U/L ALT 13 (0-40) U/L Alkaline Phosphatase 83 (39-117) U/L Albumin 4.2 (3.5-5.0) g/dL Urine 01/23/22 Range/Units 10:48 Urine Color YELLOW Urine Appearance CLEAR Urine pH 5.5 (5.0-8.0) Ur Specific [place] >= 1.030 H (1.005-1.025) Urine Protein NEG (NEG-TRACE) MG/DL Urine Glucose (UA) 500 H (NEG) MG/DL All other labs normal. Assessment and Plan (1) Ureteral stone with hydronephrosis: Status: Acute Plan Risks, benefits and alternatives to therapy were discussed. These include but are not limited to infection, bleeding, damage to local organs and tissues, need for further interventions. Anesthetic risks regarding cardiac arrhythmia, blood clots, and potential mortality were discussed. The patient understands the typical recovery time and the outpatient nature of the procedure. After consideration of these risks the patient gives full informed consent and they wish to move ahead with the procedure. cystoscopy, right retrograde, right stent placement Procedures Date of Service Date of Service: 01/24/22
--- NOTE | 2022-01-24 12:23 | HO.ANESPROP2 ---
[facility] Active Problems Active Problems: All Active Problems (Updated 01/24/22 @ 11:50 by Ebenezer Perez MD) Ureteral stone with hydronephrosis (Acute) Renal colic (Acute) Leukocytosis (Acute) Past Medical History Medical History A-fib Diabetes HTN (hypertension) Kidney calculi Psoriasis Rheumatoid arthritis Functional capacity: independent ambulation Family History Family History Brother Heart disease Family history of problems with anesthesia: No Surgical History History of Problems with Anesthesia: No Social History Social History Household Members: None Housing: Condominium Do you presently have visiting nurse or other home services: No Alcohol intake: never Patient Tobacco Use Status: Never used Tobacco Use of substances other than those prescribed or required for medical reasons: No Currently Displaying Signs/Symptoms of Drug Intoxication Withdrawal: No Have you been hit, kicked, punched, or otherwise hurt by someone within the past year? If so, by whom?: No Do you feel safe in your current relationship?: No Current Relationship Is there a partner from a previous relationship who is making you feel unsafe now?: No Are you made to feel afraid or neglected: No Advance Directives: No Advance Directives Information Provided: No Do you have thoughts of harming others: None Do you have a plan to hurt others: No Plan Recently lost weight without trying: No Nutrition Risks: No Nutritional Risk Meds Allergies Allergy/AdvReac Type Severity Reaction Status Date / Time No Known Allergies Allergy Verified 01/23/22 10:33 Active Medications: Current Medications Acetaminophen (Acetaminophen 325 Mg Tablet) 650 mg PO Q6H PRN PRN Reason: Pain, Mild (Pain Scale 1-3) Dextrose (Dextrose 50 % 25 Gm/50 Ml Syringe) 25 gm IVPUSH Q15M PRN; Protocol PRN Reason: per Hypoglycemia Standing Ord. Docusate Sodium (Docusate Sodium 100 Mg Capsule) 100 mg PO DAILY PRN PRN Reason: Constipation Flecainide Acetate (Flecainide Acetate 50 Mg Tablet) 100 mg PO Q12H [facility] Last Admin: 01/24/22 04:47 Dose: Not Given Documented by: Folic Acid (Folic Acid 1 Mg Tablet) 1 mg PO DAILY [facility] Last Admin: 01/24/22 08:22 Dose: Not Given Documented by: Glucose (Glucose Gel 15 Gm Gel..Gram.) 15 gm PO Q15M PRN; Protocol PRN Reason: per Hypoglycemia Standing Ord. Ceftriaxone Sodium 1 gm/ (Sodium Chloride) 50 mls @ 100 mls/hr IV Q24H [facility] Lactated Ringer's (Lr) 1,000 mls @ 125 mls/hr IVCONT .Q8H [facility] Last Infusion: 01/24/22 11:24 Dose: Infused Documented by: Insulin Human Lispro (Insulin Lispro 100 Unit/Ml 3 Ml Vial) 0 unit SUBCUT QIDACHS [facility]; Protocol Last Admin: 01/24/22 11:39 Dose: Not Given Documented by: Methotrexate (Methotrexate Sodium 2.5 Mg Tablet) 10 mg PO Q7D [facility] Last Admin: 01/24/22 08:22 Dose: Not Given Documented by: Metoprolol Tartrate (Metoprolol Tartrate 25 Mg Tablet) 75 mg PO BID [facility]; Protocol Last Admin: 01/24/22 08:22 Dose: 75 mg Documented by: Morphine Sulfate (Morphine Sulfate 2 Mg/Ml Cartridge) 2 mg IVPUSH Q4H PRN; Protocol PRN Reason: Pain, Severe (Pain Scale 7-10) Ondansetron HCl (Ondansetron Hcl 4 Mg/2 Ml Vial) 4 mg IVPUSH Q8H PRN PRN Reason: Nausea and Vomiting Pharmacy Consult (Consult Rx Perform Med Rec) 1 each MISCELLANE ONCE PRN PRN Reason: Consult order Pravastatin Sodium (Pravastatin Sodium 80 Mg Tablet) 80 mg PO DAILY [facility] Last Admin: 01/24/22 08:22 Dose: Not Given Documented by: Sodium Chloride (0.9 % Sodium Chloride Flush 3 Ml Syringe) 3 ml IVFLUSH QSHIFT [facility] Last Admin: 01/24/22 08:22 Dose: Not Given Documented by: Tamsulosin HCl (Tamsulosin Hcl 0.4 Mg Capsule) 0.4 mg PO BEDTIME [facility] Last Admin: 01/23/22 20:32 Dose: 0.4 mg Documented by: Home Medications Medication Instructions Recorded Confirmed Last Taken Type dabigatran etexilate 150 mg 150 mg PO BID 01/23/22 01/23/22 01/23/22 History capsule (Pradaxa) flecainide 100 mg tablet 100 mg PO Q12H 01/23/22 01/23/22 01/23/22 History folic acid 1 mg tablet 1 mg PO DAILY 01/23/22 01/23/22 01/23/22 History glipizide 10 mg tablet 10 mg PO BID 01/23/22 01/23/22 01/23/22 History lisinopril 20 1 tab PO DAILY 01/23/22 01/23/22 01/23/22 History mg-hydrochlorothiazide 12.5 mg tablet metformin 1,000 mg tablet 1,000 mg PO BID 01/23/22 01/23/22 01/23/22 History methotrexate sodium 2.5 mg tablet 10 mg PO QWEEK 01/23/22 01/23/22 01/17/22 History metoprolol tartrate 50 mg tablet 75 mg PO BID 01/23/22 01/23/22 01/23/22 History pravastatin 80 mg tablet 80 mg PO DAILY 01/23/22 01/23/22 01/23/22 History Exam Exam Date and Time: January 24, 2022 1223 Height,Weight and Vital Signs: Height 6 ft Weight 102.058 kg Last Vital Signs Temp 97.8 F 01/24/22 11:31 Pulse 63 01/24/22 11:31 Resp 18 01/24/22 11:31 BP 121/65 01/24/22 11:31 Pulse Ox 97 01/24/22 11:31 Pertinent Lab Results Pertinent Lab Results: Laboratory Tests 01/23/22 01/23/22 01/23/22 10:48 10:48 10:48 WBC 18.0 H RBC 4.68 Hgb 14.2 Hct 42.6 MCV 91.0 MCH 30.3 MCHC 33.3 RDW 12.8 Plt Count 332 MPV 10.3 Immature Gran % (Auto) 0.5 H Neut % (Auto) 87.0 H Lymph % (Auto) 7.0 L [place] % (Auto) 5.2 Eos % (Auto) 0.1 Baso % (Auto) 0.2 Lymph # (Auto) 1.3 [place] # (Auto) 0.9 Eos # (Auto) 0.0 Baso # (Auto) 0.0 Abs Immat Gran (auto) 0.09 H Absolute Neuts (auto) 15.6 H Absolute Nucleated RBC 0.000 Nucleated RBC % (auto) 0.0 Sodium 136 Potassium 4.4 Chloride 99 Carbon Dioxide 25 Anion Gap 16 BUN 29 H Creatinine 1.56 H Estim Creat Clear Calc 52.9 Estimated GFR 44 POC Glucose Random Glucose 293 H Lactic Acid Calcium 9.7 Total Bilirubin 0.3 Direct Bilirubin 0.2 AST 12 ALT 13 Alkaline Phosphatase 83 Total Protein 7.3 Albumin 4.2 Urine Color YELLOW Urine Appearance CLEAR Urine pH 5.5 Ur Specific [place] >= 1.030 H Urine Protein NEG Urine Glucose (UA) 500 H Urine Ketones 15 Urine Blood 2+ H Urine Nitrite NEG Ur Leukocyte Esterase NEG Urine RBC 5-9 H Urine WBC 0-2 Ur Squamous Epith Cells TRACE Urine Bacteria NONE COVID-19 (AVINASH) COVID-19 [employer] 01/23/22 01/23/22 01/23/22 14:52 17:10 17:25 WBC RBC Hgb Hct MCV MCH MCHC RDW Plt Count MPV Immature Gran % (Auto) Neut % (Auto) Lymph % (Auto) [place] % (Auto) Eos % (Auto) Baso % (Auto) Lymph # (Auto) [place] # (Auto) Eos # (Auto) Baso # (Auto) Abs Immat Gran (auto) Absolute Neuts (auto) Absolute Nucleated RBC Nucleated RBC % (auto) Sodium 138 Potassium 4.5 Chloride 102 Carbon Dioxide 26 Anion Gap 15 BUN 31 H Creatinine 1.46 H Estim Creat Clear Calc 56.5 Estimated GFR 47 POC Glucose 184 H Random Glucose 233 H Lactic Acid Calcium 9.4 Total Bilirubin Direct Bilirubin AST ALT Alkaline Phosphatase Total Protein Albumin Urine Color Urine Appearance Urine pH Ur Specific [place] Urine Protein Urine Glucose (UA) Urine Ketones Urine Blood Urine Nitrite Ur Leukocyte Esterase Urine RBC Urine WBC Ur Squamous Epith Cells Urine Bacteria COVID-19 (AVINASH) Negative COVID-19 [employer] Com See Note 01/23/22 01/23/22 01/24/22 17:26 18:57 05:01 WBC 9.0 RBC 3.76 L Hgb 11.4 L Hct 34.8 L MCV 92.6 MCH 30.3 MCHC 32.8 RDW 12.9 Plt Count 225 D MPV 10.5 Immature Gran % (Auto) Neut % (Auto) Lymph % (Auto) [place] % (Auto) Eos % (Auto) Baso % (Auto) Lymph # (Auto) [place] # (Auto) Eos # (Auto) Baso # (Auto) Abs Immat Gran (auto) Absolute Neuts (auto) Absolute Nucleated RBC 0.000 Nucleated RBC % (auto) 0.0 Sodium Potassium Chloride Carbon Dioxide Anion Gap BUN Creatinine Estim Creat Clear Calc Estimated GFR POC Glucose 174 H Random Glucose Lactic Acid 1.4 Calcium Total Bilirubin Direct Bilirubin AST ALT Alkaline Phosphatase Total Protein Albumin Urine Color Urine Appearance Urine pH Ur Specific [place] Urine Protein Urine Glucose (UA) Urine Ketones Urine Blood Urine Nitrite Ur Leukocyte Esterase Urine RBC Urine WBC Ur Squamous Epith Cells Urine Bacteria COVID-19 (AVINASH) COVID-19 [employer] 01/24/22 01/24/22 01/24/22 05:01 07:16 11:20 WBC RBC Hgb Hct MCV MCH MCHC RDW Plt Count MPV Immature Gran % (Auto) Neut % (Auto) Lymph % (Auto) [place] % (Auto) Eos % (Auto) Baso % (Auto) Lymph # (Auto) [place] # (Auto) Eos # (Auto) Baso # (Auto) Abs Immat Gran (auto) Absolute Neuts (auto) Absolute Nucleated RBC Nucleated RBC % (auto) Sodium 139 Potassium 4.1 Chloride 102 Carbon Dioxide 26 Anion Gap 15 BUN 24 H Creatinine 1.00 Estim Creat Clear Calc 82.5 Estimated GFR > 60 POC Glucose 205 H 181 H Random Glucose 240 H Lactic Acid Calcium 9.1 Total Bilirubin Direct Bilirubin AST ALT Alkaline Phosphatase Total Protein Albumin Urine Color Urine Appearance Urine pH Ur Specific [place] Urine Protein Urine Glucose (UA) Urine Ketones Urine Blood Urine Nitrite Ur Leukocyte Esterase Urine RBC Urine WBC Ur Squamous Epith Cells Urine Bacteria COVID-19 (AVINASH) COVID-19 Clin Com Assessment and Plan Final Anesthetic Review Family History of Problems with Anesthesia: No History of Problems with Anesthesia: No ASA Class: III and Emergency Final Preanesthetic Review: No Changes in Pt Med Stat, Meds/Allgs Chart Reviewed, Consent Obtained/Reviewed and Anes Risks/Benef Reviewed Patient Risk: Intermediate Procedure Risk: Low Anesthetic Plan Anesthetic Plan: GA Disposition: Standard PACU
--- NOTE | 2022-01-24 13:11 | MHC.CM.PN ---
PT REPORTS HE LIVES ALONE AND IS INDEPENDENT WITH CARE PT REPORTS HE HAS NO HOME SERVICES HE HAS A CPAP HE USES AT NIGHT PT DOES NOT HAVE A HCP AND DECLINES TO COMPLETE ONE TODAY PCP IS LELA DE DIOS PT REPORTS HE IS COVID-19 VACCINATED IMM AND VA RIGHTS DELIVERED CURRENT DC PLAN IS HOME WITH NO SERVICES PT WILL DRIVE HIMSELF
--- NOTE | 2022-01-24 13:35 | MHC.SHP ---
Pre-Procedural Eval Section A Date of Service: 01/24/22 The patient is an INPATIENT: Yes Changes since office visit: No Cold of Flu in the past 2 weeks, No New Medical Problems, No Changes in Medication and No Patient answered all questions The History & Physical has been completed within 30 days and I have reviewed it.: Yes Section B Chief Complaint: kidney stone Allergies: Allergies Allergy/AdvReac Type Severity Reaction Status Date / Time No Known Allergies Allergy Verified 01/23/22 10:33 Plan Diagnosis/Plan: Unchanged ( cystoscopy, right retrograde, right stent placement) I have reviewed the history and physical and performed a pertinent physical examination on my patient. No changes have occurred unless specified.
--- NOTE | 2022-01-24 13:36 | P.OP_ITS ---
Operative Note Operative Note Date of Service: 01/24/22 Narrative: PreOperative Diagnosis: right proximal to mid ureter external with hydroureteronephrosis Post Operative Diagnosis: same Procedure: cystoscopy, right retrograde, right stent placement Surgeon: Dr Ebenezer Perez Anesthesia: sedation Indications for procedure: increased creatinine and white cell count was obstructing proximal ureter stone on right side Procedure: After informed consent was verified the patient was brought to the operating room and placed in a supine position. Anesthesia was administered per protocol. The patient was placed in modified dorsal lithotomy position and prepped and draped in a sterile fashion. A safety pause time-out was performed. Laterality of procedure and antibiotics were confirmed. appropriate imaging was available A 22 [place] cystoscope was introduced per urethra. No abnormality was noted. Both ureteric orifices were seen in a normal position. The right ureter was cannulated with an open ended catheter and a retrograde examination was performed. filling defects seen at proximal ureter secondary to stone . A Sensor guidewire was placed under fluoroscopy and a good coil was seen within the renal pelvis. renal pelvis was aspirated using open-ended catheter. A 6 [place] by 28 cm stent was advanced over the wire and up to the level of the renal pelvis under fluoroscopic and direct visualization. The stent was seen with appropriate coil within the renal pelvis and in the bladder after deployment. The patient tolerated the procedure well and was transferred in stable condition to the recovery area. Pathology: None Drains: 6 [place] by 28 cm stent
--- NOTE | 2022-01-24 14:02 | HO.POSTANES ---
Post Anesthesia Evaluation Post Anesthesia Evaluation Vital Signs: Vital Signs Temp Pulse Resp BP Pulse Ox 01/24/22 13:52 97.1 F 70 18 92/54 L 96 01/24/22 13:47 97.1 F 73 16 92/54 L 94 01/24/22 11:31 97.8 F 63 18 121/65 97 01/24/22 07:42 97 F 74 18 116/70 97 01/24/22 03:16 97.1 F 71 18 130/65 95 Anesthesia: Monitored Mental Status: Awake Pain Control: Satisfactory Nausea/Vomiting: None Hydration: Adequate Anesthesia-Related Issues: No Anes. Related Issues
[2022-01-24] MEDS: Acetaminophen 325 MG TABLET 650 MG PO (14:29)
[2022-01-24] MEDS: Phenazopyridine HCL 100 MG TABLET PO (14:30)
[2022-01-24] MEDS: oxyCODONE HCl Immed Release 5 MG TABLET PO (14:31)
[2022-01-24 16:06] LABS: Glucose, Whole Blood 249 mg/dL (60-115)
[2022-01-24] MEDS: cefTRIAXone sodium 1 GM in 0.9 % Sodium Chloride 50 ML IV (16:38)
[2022-01-24] MEDS: Flecainide Acetate 50 MG TABLET 100 MG PO (16:39)
[2022-01-24] MEDS: Morphine Sulfate 2 MG/ML CARTRIDGE IVPUSH ×2 (16:39→19:43)
[2022-01-24] MEDS: Folic Acid 1 MG TABLET PO (16:50)
[2022-01-24] MEDS: metHOTREXate sodium 2.5 MG TABLET 10 MG PO (16:51)
[2022-01-24] MEDS: traMADoL HCL 50 MG TABLET PO (18:01)
[2022-01-24] MEDS: Tamsulosin HCL 0.4 MG CAPSULE PO (19:54)
[2022-01-24 20:26] LABS: Glucose, Whole Blood 278 mg/dL (60-115)
[2022-01-25] VITALS: BP 115/59; PULSE 71; RESP 18; TEMP 36.2; O2SAT 95
[2022-01-25 03:39] VITALS: BP 144/76; PULSE 72; RESP 18; TEMP 36.2; O2SAT 95
[2022-01-25] MEDS: Flecainide Acetate 50 MG TABLET 100 MG PO (05:32)
[2022-01-25] MEDS: traMADoL HCL 50 MG TABLET PO ×2 (05:41→12:05)
[2022-01-25 07:25] VITALS: BP 138/70; PULSE 62; RESP 18; TEMP 36.5; O2SAT 95
[2022-01-25 07:45] LABS: Glucose, Whole Blood 208 mg/dL (60-115)
[2022-01-25] MEDS: Metoprolol Tartrate 25 MG TABLET 75 MG PO (07:47)
[2022-01-25] MEDS: Insulin Lispro 100 UNIT/ML 3 ML VIAL SUBCUT ×2 (07:47→12:02)
[2022-01-25] MEDS: Pravastatin Sodium 80 MG TABLET PO (07:47)
[2022-01-25] MEDS: Folic Acid 1 MG TABLET PO (07:47)
[2022-01-25] MEDS: Morphine Sulfate 2 MG/ML CARTRIDGE IVPUSH (07:54)
--- NOTE | 2022-01-25 09:25 | PM.DS ---
DS: Providers Provider Date of Service: 01/25/22 Date of admission: 01/23/22 16:06 Primary care physician: EVANGELIST Low Consults: 01/23/22 16:06 Consult to Urology Routine Consulting Provider: Ebenezer Perez Reason for consultation: kidney stone with hydro Has provider been notified: No Attending physician on discharge: Dani [facility] Discharging clinician: Cris Rivera DS: Diagnosis Discharge Diagnosis (1) Ureteral stone with hydronephrosis: Status: Acute DS: Summary Hospital Course Hospital Course: HP as per admitting provider This is a 71-year-old male who presents to the emergency department with flank pain.? Patient states that his pain began last evening around 17:00 the pain is located in his right groin and radiates part way around his abdomen to his back.? The pain is associated with nausea.? He denies any vomiting, fever, chills.? He has had kidney stones in the past and the pain is similar to previous episodes but more severe.? For this reason he presented to the emergency department for evaluation CT scan in the emergency department showed a large right-sided kidney stone with associated mild hydronephrosis.? Lab work was significant for elevated white count at 18,000, he has remained afebrile.? Creatinine was elevated at 1.56, patient denies any known history of renal dysfunction.? He was treated with empiric antibiotics, , antiemetics and IV fluid.? The case was discussed with Urology who recommended admission to the medicine team . renal colic secondary to right kidney stone with associated hydronephrosis s/p cystoscopy, right retrograde, right stent placement on 01/24/22 UA not suggestive of infection, but treated with IB rocephin IVF, antiemetics, IV analgesia continue flomax as outpatient and follow with urology Renal insufficiency. . Back to baseline pt denies h/o of known kidney disease, but no baseline renal function in system for comparison Held Lisinopril/HCTZ dueing admission but continue as o/p treated with IVF PAF Pradaxa held in anticipation of procedure but continued as o/p Continue flecainide, metoprolol HTN lisinopril/HCTZ continue metoprolol DM Hold metformin, glipizide SSI, POCs RA continue methotrexate HLD continue statin Time Spent with Patient Time attestation: Total time spent providing and/or coordinating discharge services: Discharge coordination time: Greater than 30 minutes Quality: Safe Use of Opioids Does Pt have an Active Cancer Diagnosis on the Problem List?: No Quality: Stroke Does the patient have a stroke diagnosis?: No Physical Exam Vital Signs: Vital Signs: Last Vital Signs Temp 97.7 F 01/25/22 07:25 Pulse 62 01/25/22 07:25 Resp 18 01/25/22 07:25 BP 138/70 01/25/22 07:25 Pulse Ox 95 01/25/22 07:25 BMI result Body Mass Index 30.5 Appearing in no acute distress head is normocephalic atraumatic eyes pupils are PERRLA sclera is anicteric mouth throat mucous membranes are intact and moist neck is supple no lymphadenopathy, no JVD noted lung sounds are clear to auscultation heart regular rate rhythm, clear S1, S2 positive bowel sounds, abdomen is soft, nontender neuro patient is alert x3, no focal deficits DS: Data Data Completed and Pending Labs on day of discharge: Laboratory Results - last 24 hr 01/24/22 01/24/22 01/24/22 11:20 15:18 19:49 POC Glucose 181 H 249 H 278 H 01/25/22 07:11 POC Glucose 208 H Preliminary micro results at discharge 01/23/22 16:12 Blood Culture - Preliminary Blood - Venous No growth after 24 hours. 01/23/22 16:12 Blood Culture - Preliminary Blood - Venous No growth after 24 hours. Discharge Plan Discharge Anticipated Discharge Date/Time: 01/25/22 09:21 Patient Disposition: Home, Self-Care Discharge Diagnosis: Renal colic secondary to right kidney stone with associated hydronephrosis KYLER Referrals: Ebenezer Perez MD [Physician] - 1 Week Sha Mcdonald PA [Primary Care Provider] - 1 Week Discharge Medications: New tamsulosin 0.4 mg Capsule 0.4 mg PO BEDTIME Qty: 30 0RF oxycodone 5 mg tablet 5 mg PO Q8H PRN (Reason: pain) Qty: 12 0RF Continued glipizide 10 mg Tablet 10 mg PO BID 0RF pravastatin 80 mg Tablet 80 mg PO DAILY 0RF methotrexate sodium 2.5 mg Tablet 10 mg PO QWEEK 0RF Label Comments: ONLY TOOK ONE WEEK OUT OF 4 WEEKS SO FAR metformin 1,000 mg Tablet 1,000 mg PO BID 0RF flecainide 100 mg Tablet 100 mg PO Q12H 0RF metoprolol tartrate 50 mg Tablet 75 mg PO BID 0RF folic acid 1 mg Tablet 1 mg PO DAILY 0RF Pradaxa 150 mg Capsule 150 mg PO BID 0RF lisinopril-hydrochlorothiazide 20-12.5 mg Tablet 1 tab PO DAILY 0RF Discharge Orders: Discharge Order (Routine); Ordered 01/25/22 Ordered By: Cris Rivera Diet: advance to usual diet Activity on Discharge: As tolerated Stand Alone Forms: Patient Portal Discharge page Care Plan Goals: resolution of symptoms Health Concerns: Renal colic secondary to right kidney stone with associated hydronephrosis KYLER Plan of Treatment: follow-up with Dr. Perez, urologist Assessment: see discharge summary
--- NOTE | 2022-01-25 09:39 | MHC.CM.PN ---
PT WILL DC HOME TODAY WITH NO SERVICES HE WILL DRIVE HIMSELF HOME, CAR IS IN LOT
[2022-01-25 10:50] VITALS: BP 149/72; PULSE 70; RESP 18; TEMP 36.3; O2SAT 97
--- NOTE | 2022-01-25 11:40 | HO.POSTANES ---
Post Anesthesia Evaluation Post Anesthesia Evaluation Vital Signs: Vital Signs Temp Pulse Resp BP Pulse Ox 01/25/22 10:50 97.4 F 70 18 149/72 H 97 01/25/22 07:25 97.7 F 62 18 138/70 95 01/25/22 03:39 97.2 F 72 18 144/76 H 95 01/25/22 00:00 97.2 F 71 18 115/59 L 95 Anesthesia: TIVA Mental Status: Awake Pain Control: Satisfactory Nausea/Vomiting: None Hydration: Adequate Anesthesia-Related Issues: No Anes. Related Issues
[2022-01-25 11:43] LABS: Glucose, Whole Blood 215 mg/dL (60-115)
== END 2022-01-25 13:12 | disposition home or self-care (01) | DRG 661 ==
LOC: HO.ED 15:50 → HO.EDOVER 16:57 → HO.S3 17:54
PROVIDERS: Nurse Practitioner Family; Urology; Admitting Provider Physician Assistant Medical; Emergency Provider Emergency Medicine; PCP Physician Assistant Medical; Visit Provider Nurse Practitioner Acute Care
PROC: 0T768DZ Dilation of Right Ureter with Intraluminal Device, Via Natural or Artificial Opening Endoscopic (ICD-10-PCS; principal; 2022-01-24 12:30)
DX: N13.2 Hydronephrosis with renal and ureteral calculous obstruction (principal); L40.9 Psoriasis, unspecified; M06.9 Rheumatoid arthritis, unspecified; I48.91 Unspecified atrial fibrillation; I48.0 Paroxysmal atrial fibrillation; E78.5 Hyperlipidemia, unspecified; I10 Essential (primary) hypertension; E11.9 Type 2 diabetes mellitus without complications; Z20.822 Contact with and (suspected) exposure to COVID-19; Z87.442 Personal history of urinary calculi; Z79.84 Long term (current) use of oral hypoglycemic drugs; Z79.899 Other long term (current) drug therapy
CPT/HCPCS: 36415; 74176; 80048; 80076; 81001; 82947; 83605; 85025; 85027; 87040; 87635; 96361; 96365; 99285; C1758; C1769; C2617; J0696; J1956; J2270; J2405; J3010; Q9967

== ENCOUNTER → 2022-02-04 13:11 | Outpatient (BNVA) | payer MEDICARE, SELFPAY | PROVIDERS: PCP Physician Assistant Medical; Visit Provider Urology | DX: N20.0 Calculus of kidney (principal) | CPT/HCPCS: 99212 ==

== ENCOUNTER 2022-02-16 11:59 | Day surgery (SDC) | payer MEDICARE, SELFPAY ==
--- NOTE | ~2022-02-16 | FL_ITS ---
EXAMINATION: XR FLUOROSCOPY WITH IMAGES CLINICAL INFORMATION: Right urinary tract calculus. Mild right hydronephrosis and hydroureter. COMPARISON: CT abdomen and pelvis 01/23/2022, fluoroscopic spot view 01/24/2022 TECHNIQUE: Fluoroscopy performed by Dr. Ebenezer Perez. Fluoroscopy time: 0.43 minutes Cumulative dose: 10.1 mGy Images: 1 FINDINGS: There is a guidewire overlying the right renal collecting system and right ureter. Some mild contrast is present in the collecting system. No overt hydronephrosis. No extravasation. FL/FL guidance in OR IMPRESSION: Fluoroscopy for urologic procedure.
[2022-02-16 12:37] VITALS: BP 106/59; PULSE 70; RESP 19; TEMP 36.1; O2SAT 97; BMI 27.5
[2022-02-16 12:39] LABS: Glucose, Whole Blood 181 mg/dL (60-115)
--- NOTE | 2022-02-16 16:36 | MHC.SHP ---
Pre-Procedural Eval Section A Date of Service: 02/16/22 The patient is an INPATIENT: No Changes since office visit: No Cold of Flu in the past 2 weeks, No New Medical Problems, No Changes in Medication and No Patient answered all questions The History & Physical has been completed within 30 days and I have reviewed it.: Yes Section B Chief Complaint: Calculus of kidney Details of Present Illness: cystoscopy, right stent removal, right retrograde, right ureteroscopy, laser lithotripsy, stone basketing, stent placement Present Medications: see Short Stay Collaborative assessment Medical History: No relevant PMH History of Previous Operations: Relevant previous surgery/procedure and date(s) Allergies: Allergies Allergy/AdvReac Type Severity Reaction Status Date / Time No Known Allergies Allergy Verified 02/04/22 13:12 Review of Systems Sugical H&P ROS: Negative: Constitution, Cardiovascular, Respiratory, Neurological, Psychiatric, Hem-Onc, Allergic/Immunologic, Gastrointestinal, Genitourinary, Musculoskeletal, Integumentary, Endocrine and Eyes/Ears/Nose/Throat Exam Surgical H&P Exam: Normal: HEENT, Normal: Heart, Normal: Lungs, Normal: Extremities, Normal: Abdomen, Normal: Skin and Normal: Neurological Plan Diagnosis/Plan: Unchanged I have reviewed the history and physical and performed a pertinent physical examination on my patient. No changes have occurred unless specified.
--- NOTE | 2022-02-16 16:51 | P.CONAN_ITS ---
[facility] Active Problems Active Problems: All Active Problems (Updated 02/11/22 @ 23:02 by Ebenezer Perez MD) Nephrolithiasis (Acute) Past Medical History Medical History A-fib Diabetes HTN (hypertension) Kidney calculi Psoriasis Rheumatoid arthritis Family History Family History Brother Heart disease Family history of problems with anesthesia: No Surgical History History of Problems with Anesthesia: No Social History Social History Household Members: None Housing: Condominium Do you presently have visiting nurse or other home services: No Alcohol intake: never Patient Tobacco Use Status: Never used Tobacco Are you DNR?: No Advance Directives: No Advance Directives Information Provided: Yes service: Yes Current occupational status: disabled Meds Allergies Allergy/AdvReac Type Severity Reaction Status Date / Time No Known Allergies Allergy Verified 02/04/22 13:12 Home Medications Medication Instructions Recorded Confirmed Last Taken Type dabigatran etexilate 150 mg 150 mg PO BID 01/23/22 01/23/22 01/26/22 History capsule (Pradaxa) flecainide 100 mg tablet 100 mg PO Q12H 01/23/22 01/23/22 02/16/22 History folic acid 1 mg tablet 1 mg PO DAILY 01/23/22 01/23/22 02/16/22 History glipizide 10 mg tablet 10 mg PO BID 01/23/22 01/23/22 01/23/22 History lisinopril 20 1 tab PO DAILY 01/23/22 01/23/22 01/23/22 History mg-hydrochlorothiazide 12.5 mg tablet metformin 1,000 mg tablet 1,000 mg PO BID 01/23/22 01/23/22 01/23/22 History methotrexate sodium 2.5 mg tablet 10 mg PO QWEEK 01/23/22 01/23/22 01/17/22 History metoprolol tartrate 50 mg tablet 75 mg PO BID 01/23/22 01/23/22 02/16/22 History pravastatin 80 mg tablet 80 mg PO DAILY 01/23/22 01/23/22 01/23/22 History Exam Exam Date and Time: February 16, 2022 165 Height,Weight and Vital Signs: Height 6 ft Weight 92.079 kg Last Vital Signs Temp 97 F 02/16/22 12:37 Pulse 70 02/16/22 12:37 Resp 19 02/16/22 12:37 BP 106/59 L 02/16/22 12:37 Pulse Ox 97 02/16/22 12:37 Pertinent Lab Results Pertinent Lab Results: Laboratory Tests 02/16/22 12:35 POC Glucose 181 H Airway Mallampati Class: II TM Dist: >3cm Neck ROM: Full Partial: Upper and Lower Loose/Missing/Broken Teeth: Yes, Upper and Lower Heart: RRR Lungs: CTA Assessment and Plan Assessment Anesthesia Assessment: Anesthesia Plan Discussed and Chart Reviewed Final Anesthetic Review Family History of Problems with Anesthesia: No History of Problems with Anesthesia: No NPO: Yes ASA Class: III Final Preanesthetic Review: Meds/Allgs Chart Reviewed, Consent Obtained/Reviewed and Anes Risks/Benef Reviewed Patient Risk: Intermediate Procedure Risk: Low Anesthetic Plan Anesthetic Plan: GA Disposition: Standard PACU
--- NOTE | 2022-02-16 17:36 | W.PM.OPN ---
Operative Note Operative Note Date of Service: 02/16/22 Narrative: PreOperative Diagnosis: mid right ureteric stone Post Operative Diagnosis: stone had passed Procedure: - cystoscopy, right retrograde, removal of right stent - right rigid ureteroscopy - dilatation of ureteric orifice under fluoroscopy - ureteric access sheath placement - right ureteroscopy Surgeon: Dr Ebenezer Perez Anesthesia: General Indications for procedure: had presented to hospital 2 weeks ago with right mid ureteric stone. Stent placed. Here for definitive procedure. Understands that stone may have passed or progressed since initial evaluation and we are unable to determine without doing a procedure. Procedure: After informed consent was verified patient was brought to the operating placed in supine position. Anesthesia was administered per protocol. Patient was placed in modified dorsal lithotomy position and prepped and draped in a sterile fashion. Safety pause time-out and side of surgery confirmed. Antibiotics confirmed. 22 [place]aur[place] cystoscope was inserted per urethra. Bladder was normal in its entirety. Both ureteric orifices were in normal position. Right stent seen coming from right ureteric orifice The right ureteric orifice was cannulated and a retrograde examination was performed. no definitive stone seen around stent . A Sensor guidewire was placed up to the level of the renal pelvis under fluoroscopy. the right ureteric stent was grasped and removed A semi rigid ureteral scope was used to Review the ureter. No stone was seen. The rigid scope was removed The ureteric access sheath was placed and the inner cannula with access wire removed. The digital flexible ureteral scope was placed. the renal pelvis examined in its entirety with all calices examine. No stone seen. Submucosal stones Seen within the upper pole. the flexible ureteral scope was removed in the ureter examine for a 2nd time and no stone was seen to be impacted Or imbedded in the ureter The bladder was emptied. The patient tolerated the procedure well and was extubated in the operating room, and transferred in stable condition to the recovery area. Pathology: none Drains: none
[2022-02-16 17:43] VITALS: BP 97/54; PULSE 69; RESP 20; TEMP 36.3; O2SAT 100
[2022-02-16 17:48] VITALS: BP 104/64; PULSE 70; RESP 20; O2SAT 97
[2022-02-16 17:53] VITALS: BP 108/62; PULSE 79; RESP 20; O2SAT 95
[2022-02-16 17:58] VITALS: PULSE 68; RESP 20; TEMP 36.3; O2SAT 96
[2022-02-16] MEDS: Phenazopyridine HCL 100 MG TABLET PO (18:02)
== END 2022-02-16 18:25 | disposition home or self-care (01) ==
PROVIDERS: PCP Physician Assistant Medical; Visit Provider Urology
PROC: (CPT 52005; principal; 2022-02-16 15:00)
DX: N20.1 Calculus of ureter (principal); I48.91 Unspecified atrial fibrillation; I10 Essential (primary) hypertension; M06.9 Rheumatoid arthritis, unspecified; E11.9 Type 2 diabetes mellitus without complications; Z79.84 Long term (current) use of oral hypoglycemic drugs; Z79.899 Other long term (current) drug therapy
CPT/HCPCS: 52005; 82947; C1758; C1769; J1956; J3010; Q9967

== ENCOUNTER 2022-04-16 10:15 | Outpatient (REF) | payer MEDICARE, SELFPAY ==
--- NOTE | ~2022-04-16 | US_ITS ---
EXAMINATION: US RETROPERITONEAL LIMITED (RENAL ONLY) CLINICAL INFORMATION: Calculus of kidney. COMPARISON: CT abdomen and pelvis without contrast dated 01/23/2022. TECHNIQUE: Real-time imaging of the kidneys. FINDINGS: RIGHT KIDNEY: 10.5 x 5.5 x 5.2 cm (SAG x AP x TRV). The kidney is normal in size, contour, and echogenicity. Renal cortical thickness is normal. There is a 6 mm stone in the lower pole. No focal parenchymal lesions or hydronephrosis. LEFT KIDNEY: 11.4 x 6.4 x 5.9 cm (SAG x AP x TRV). The kidney is normal in size, contour, and echogenicity. Renal cortical thickness is normal. No calculi or focal parenchymal lesions. The small 1 to 2 mm stone in the lower pole the left kidney seen by CT January 2022 is not appreciated by ultrasound. No hydronephrosis. US/US renal BI IMPRESSION: Right renal stone. No left renal stone seen by ultrasound.
== END 2022-04-16 10:16 | disposition home or self-care (01) ==
LOC: HO.US 10:15
PROVIDERS: Visit Provider Urology
DX: N20.0 Calculus of kidney (principal)
CPT/HCPCS: 76775

== ENCOUNTER → 2022-04-21 08:57 | Outpatient (BNVA) | payer MEDICARE, SELFPAY | PROVIDERS: PCP Physician Assistant Medical; Visit Provider Urology | DX: N20.0 Calculus of kidney (principal) | CPT/HCPCS: Q3014 ==

== ENCOUNTER 2022-10-14 15:27 | Outpatient (REF) | payer MEDICARE, SELFPAY ==
--- NOTE | ~2022-10-14 | US_ITS ---
EXAMINATION: US RETROPERITONEAL LIMITED (RENAL ONLY) CLINICAL INFORMATION: Calculus of kidney. COMPARISON: Ultrasound retroperitoneal limited (renal only) 04/16/2022. CT abdomen and pelvis without contrast 01/23/2022. TECHNIQUE: Real-time imaging of the kidneys. FINDINGS: RIGHT KIDNEY: 11.7 x 5.9 x 5.8 cm (SAG x AP x TRV). The kidney is normal in size, contour, and echogenicity. Renal cortical thickness is normal. No focal parenchymal lesions or hydronephrosis. Nonobstructive lower pole renal calculus measuring 0.3 cm. LEFT KIDNEY: 12.2 x 6.6 x 6.2 cm (SAG x AP x TRV). The kidney is normal in size, contour, and echogenicity. Renal cortical thickness is normal. No calculi or focal parenchymal lesions. No hydronephrosis. US/US renal BI IMPRESSION: Nonobstructive 0.3 cm right lower pole renal calculus.
== END 2022-10-14 15:28 | disposition home or self-care (01) ==
LOC: HO.HMGCX 15:27
PROVIDERS: Visit Provider Urology
DX: N20.0 Calculus of kidney (principal)
CPT/HCPCS: 76775

== ENCOUNTER 2022-11-03 11:16 | Outpatient (REF) | payer MEDICARE, SELFPAY | END 2022-11-03 11:17 | disposition home or self-care (01) | LOC: HO.LAB 11:16 | PROVIDERS: PCP Physician Assistant Medical; Visit Provider Urology | DX: N20.0 Calculus of kidney (principal); N40.1 Benign prostatic hyperplasia with lower urinary tract symptoms; N39.0 Urinary tract infection, site not specified | CPT/HCPCS: 87086; 87088; 87186; 99212 ==

== ENCOUNTER → 2023-01-05 12:58 | Outpatient (BNVA) | payer MEDICARE, SELFPAY | PROVIDERS: PCP Physician Assistant Medical; Visit Provider Urology | DX: N40.1 Benign prostatic hyperplasia with lower urinary tract symptoms (principal); N39.0 Urinary tract infection, site not specified | CPT/HCPCS: 52000; 99212 ==

== ENCOUNTER 2023-07-06 15:05 | Outpatient (AMB) | payer MEDICARE, SELFPAY ==
--- NOTE | 2023-07-06 15:32 | MHC.OFFVIS ---
Intake Intake Visit Reasons: 6m follow up Intake Note: Patient is Present for Follow Up Urology Medication: Finasteride, Terazosin Antibiotic Allergies: Cipro Blood Thinners: None [facility] Allergies ciprofloxacin Allergy (Mild, Verified 07/06/23 15:34) leg pain Medication List - Last Reconciled 07/06/23 by Ebenezer Perez MD dabigatran etexilate (Pradaxa) 150 mg PO BID finasteride 5 mg PO DAILY 90 days flecainide 100 mg PO Q12H folic acid 1 mg PO DAILY glipizide 10 mg PO BID lisinopril-hydrochlorothiazide 20-12.5 mg 1 tab PO DAILY metformin 1,000 mg PO BID methotrexate sodium 10 mg PO QWEEK metoprolol tartrate 75 mg PO BID phenazopyridine (Pyridium) 100 mg PO TID PRN 4 days potassium citrate ER 20 mEq (2 x 10 mEq (1,080 mg)) PO BID 90 days pravastatin 80 mg PO DAILY terazosin 5 mg PO BEDTIME 90 days HPI HPI Comments History of Present Illness Details Luis Enrique is a pleasant male. He is a patient of Dr. Mcdonald. He seen for the following urologic conditions - nephrolithiasis - lower urinary tract symptoms - urosepsis Still considering GreenLight laser Continues with finasteride and terazosin Low PVR Repeat PSA and renal imaging in 6 months Refills provided Lower urinary tract symptoms Urosepsis admission to [facility] July 2022 Required prolonged treatment - Background diabetes Current therapy finasteride and terazosin Found to have high PSA that decreased on repeat testing PSA 08/01 8.8, 09/01 1.9 12/31 cystoscopy enlarged prostate Nephrolithiasis Recurrent stone former Intervention - 03/01 ureteroscopy. Has submucosal stones Imaging - 05/01 6mm right lower pole - 11/02 3mm right Therapeutic plan - encourage fluids - potassium citrate - surveillance imaging [facility] Medical History A-fib Diabetes HTN (hypertension) Kidney calculi Psoriasis Rheumatoid arthritis Family History Brother Heart disease Social History Household Members: None Housing: Condominium Do you presently have visiting nurse or other home services: No Alcohol intake: never Patient Tobacco Use Status: Never used Tobacco service: Yes Current occupational status: disabled Review of Systems Const Denies chills and Denies fever(s) Card Reports no additional complaints and Denies syncope Resp Denies cough GI Denies abdominal pain and Denies heartburn Reports as per HPI and Denies change in libido Neuro Denies syncope Psych Denies change in libido Endo Denies change in libido Physical Exam Const General: cooperative, healthy appearing, comfortable and no acute distress Orientation/consciousness: patient oriented x3 HEENT Face and sinus: Yes normal facial exam Mouth: moist mucous membranes Neck Neck: Yes normal visual inspection, Yes full ROM and Yes trachea midline Chest Chest palpation & inspection: normal inspection of the chest Resp Effort & Inspection: normal respiratory effort, able to speak in complete sentences and no respiratory distress GI Inspection: Yes normal to inspection Back/Spine/Pelvis Cervical Spine: normal cervical lordosis Thoracic/Lumbar Spine: thoracic and lumbar spine normal to inspection Skin General skin exam: no rashes or lesions noted Neuro General: patient oriented x3, gait normal, tone normal and moves all extremities Extrem General: Yes normal to inspection and Yes capillary refill normal Assessment & Plan Assessment & Plan (1) Lower urinary tract symptoms due to benign prostatic hyperplasia: Code(s): N40.1 - Benign prostatic hyperplasia with lower urinary tract symptoms (2) Nephrolithiasis: Code(s): N20.0 - Calculus of kidney Plan Six month follow-up Orders: Orders US renal BI 6 Months N20.0 - Calculus of kidney Prostate Specific Antigen 6 Months N40.1 - Benign prostatic hyperplasia with lower urinary tract symptoms Patient Instructions: Imaging studies, laboratory and physical exam results were discussed and reviewed in detail. No major barriers to patient understanding were identified. An opportunity to ask questions regarding the treatment plan was provided. All questions were answered. The patient expressed understanding and agreement with the above treatment plan. The patient is aware they should contact our office by phone for worsening of their current condition or the appearance of new urologic symptoms. Compliance is encouraged with any medications and followup testing that is ordered. It is a privilege to participate in the urologic care of your patient. If you have any questions or concerns regarding treatment for the above conditions, or other urologic issues, please do not hesitate to contact me. The office telephone contact is [phone]. This note is constructed using voice recognition software. While every effort has been made to ensure accuracy career developer errors may have been included. Yours sincerely, Dr Ebenezer Perez MD, [facility] - Urology Providers of Expert, Compassionate Care for the Genitourinary System Coding Level of Care Code Est Pt Level 3 (84601) Diagnoses Lower urinary tract symptoms due to benign prostatic hyperplasia N40.1 Nephrolithiasis N20.0
== END 2023-07-06 16:01 | disposition home or self-care (01) ==
PROVIDERS: PCP Physician Assistant Medical; Visit Provider Urology
DX: N40.1 Benign prostatic hyperplasia with lower urinary tract symptoms (principal); N20.0 Calculus of kidney
CPT/HCPCS: 99213

== ENCOUNTER → 2023-07-06 15:05 | Outpatient (BNVA) | payer MEDICARE, SELFPAY | PROVIDERS: Visit Provider Urology | DX: N40.1 Benign prostatic hyperplasia with lower urinary tract symptoms (principal); N20.0 Calculus of kidney | CPT/HCPCS: 99212 ==

== ENCOUNTER 2023-12-21 12:52 | Outpatient (REF) | payer MEDICARE, SELFPAY ==
--- NOTE | ~2023-12-21 | US_ITS ---
EXAMINATION: US RETROPERITONEAL LIMITED (RENAL ONLY) CLINICAL INFORMATION: Calculus of kidney. COMPARISON: Renal ultrasound 10/14/2022 and 04/16/2022. TECHNIQUE: Real-time imaging of the kidneys. FINDINGS: RIGHT KIDNEY: 11.6 x 6.3 x 5.8 cm (SAG x AP x TRV). The kidney is normal in size, contour, and echogenicity. Renal cortical thickness is normal. No focal parenchymal lesions or hydronephrosis. 5 mm calculus in the lower pole. LEFT KIDNEY: 12.5 x 6.5 x 5.9 cm (SAG x AP x TRV). The kidney is normal in size, contour, and echogenicity. Renal cortical thickness is normal. No renal calculi or hydronephrosis. 9 mm simple parapelvic cyst in the mid kidney. No follow-up imaging is recommended. US/US renal BI IMPRESSION: 5 mm nonobstructing calculus in the lower pole of the right kidney is not significantly changed from previous imaging. There is no hydronephrosis.
[2023-12-21 17:55] LABS: Prostate Specific Antigen 0.42 ng/mL (<0.05-4.0)
== END 2023-12-21 12:53 | disposition home or self-care (01) ==
LOC: HO.HMGCX 12:52
PROVIDERS: PCP Physician Assistant Medical; Visit Provider Urology
DX: Z12.5 Encounter for screening for malignant neoplasm of prostate (principal); N20.0 Calculus of kidney; N40.1 Benign prostatic hyperplasia with lower urinary tract symptoms
CPT/HCPCS: 36415; 76775; 84153

== ENCOUNTER 2024-01-04 14:37 | Outpatient (AMB) | payer MEDICARE, SELFPAY ==
--- NOTE | 2024-01-04 14:41 | MHC.OFFVIS ---
Intake Intake Visit Reasons: 6m US/PSA(Set) Intake Note: Patient is Present for Follow Up Urology Medication: Terazosin, Finasteride Antibiotic Allergies: Cipro Blood Thinners: None Confirmed Pharmacy: [facility] PVR: 0 Allergies ciprofloxacin Allergy (Mild, Verified 07/06/23 15:34) leg pain Medication List - Last Reconciled 01/04/24 by Ebenezer Perez MD dabigatran etexilate (Pradaxa) 150 mg PO BID finasteride 5 mg PO DAILY 90 days flecainide 100 mg PO Q12H folic acid 1 mg PO DAILY glipizide 10 mg PO BID lisinopril-hydrochlorothiazide 20-12.5 mg 1 tab PO DAILY metformin 1,000 mg PO BID methotrexate sodium 10 mg PO QWEEK metoprolol tartrate 75 mg PO BID phenazopyridine (Pyridium) 100 mg PO TID PRN 4 days potassium citrate ER 20 mEq (2 x 10 mEq (1,080 mg)) PO BID 90 days pravastatin 80 mg PO DAILY terazosin 5 mg PO BEDTIME 90 days HPI HPI Comments History of Present Illness Details Luis Enrique is a pleasant male. He is a patient of Dr. Mcdonald. He seen for the following urologic conditions - nephrolithiasis - setting diabetes - lower urinary tract symptoms Discussed CT results Small stone right side no symptoms Continue potassium citrate Did discuss coming off terazosin for single agent therapy Lower urinary tract symptoms Combination agent finasteride and terazosin Nephrolithiasis Stent placement right side January 2022 Imaging 8 mm mid ureteric stone - 01/01 renal ultrasound 5 mm right midpole stone unchanged Prior potassium citrate since diabetic PFSH Medical History A-fib Diabetes HTN (hypertension) Kidney calculi Psoriasis Rheumatoid arthritis Family History Brother Heart disease Social History Household Members: None Housing: Condominium Do you presently have visiting nurse or other home services: No Alcohol intake: never Patient Tobacco Use Status: Never used Tobacco service: Yes Current occupational status: disabled Review of Systems Const Denies chills and Denies fever(s) Card Reports no additional complaints and Denies syncope Resp Denies cough GI Denies abdominal pain and Denies heartburn Reports as per HPI and Denies change in libido Neuro Denies syncope Psych Denies change in libido Endo Denies change in libido Physical Exam Const General: cooperative, healthy appearing, comfortable and no acute distress Orientation/consciousness: patient oriented x3 HEENT Face and sinus: Yes normal facial exam Mouth: moist mucous membranes Neck Neck: Yes normal visual inspection, Yes full ROM and Yes trachea midline Chest Chest palpation & inspection: normal inspection of the chest Resp Effort & Inspection: normal respiratory effort, able to speak in complete sentences and no respiratory distress GI Inspection: Yes normal to inspection Back/Spine/Pelvis Cervical Spine: normal cervical lordosis Thoracic/Lumbar Spine: thoracic and lumbar spine normal to inspection Skin General skin exam: no rashes or lesions noted Neuro General: patient oriented x3, gait normal, tone normal and moves all extremities Extrem General: Yes normal to inspection and Yes capillary refill normal Office Procedures Post Void Residual Post Residual Void Post Void Residual (PVR): 0 [id number] Void Residual by ultrasound Assessment & Plan Assessment & Plan (1) Complicated urinary tract infection: Code(s): N39.0 - Urinary tract infection, site not specified (2) Nephrolithiasis: Code(s): N20.0 - Calculus of kidney Plan Refill prescriptions He will try coming off terazosin 12 month follow-up imaging Orders: Orders Prostate Specific Antigen 364 Days N20.0 - Calculus of kidney AMB Post Void Residual by ultrasound Today N40.1 - Benign prostatic hyperplasia with lower urinary tract symptoms US renal BI 12 Months N20.0 - Calculus of kidney Medications: Refilled potassium citrate ER 20 mEq (2 x 10 mEq (1,080 mg)) PO BID 90 days 360 tabs 3RF N20.0 - Calculus of kidney finasteride 5 mg PO DAILY 90 days 90 tabs 3RF N40.1 - Benign prostatic hyperplasia with lower urinary tract symptoms, R33.9 - Retention of urine, unspecified Patient Instructions: Imaging studies, laboratory and physical exam results were discussed and reviewed in detail. No major barriers to patient understanding were identified. An opportunity to ask questions regarding the treatment plan was provided. All questions were answered. The patient expressed understanding and agreement with the above treatment plan. The patient is aware they should contact our office by phone for worsening of their current condition or the appearance of new urologic symptoms. Compliance is encouraged with any medications and followup testing that is ordered. It is a privilege to participate in the urologic care of your patient. If you have any questions or concerns regarding treatment for the above conditions, or other urologic issues, please do not hesitate to contact me. The office telephone contact is [phone]. This note is constructed using voice recognition software. While every effort has been made to ensure accuracy professional programmer analyst errors may have been included. Yours sincerely, Dr Ebenezer Perez MD, [facility] - Urology Providers of Expert, Compassionate Care for the Genitourinary System Coding Level of Care Code Est Pt Level 4 (18332) Diagnoses Complicated urinary tract infection N39.0 Nephrolithiasis N20.0 CPT Codes Post Residual Void - PVR CPT Code: 78844-Zvxz Void Residual by ultrasound ([id number])
== END 2024-01-04 15:15 | disposition home or self-care (01) ==
PROVIDERS: PCP Physician Assistant Medical; Visit Provider Urology
DX: N39.0 Urinary tract infection, site not specified (principal); N20.0 Calculus of kidney
CPT/HCPCS: 99213

== ENCOUNTER → 2024-01-04 14:37 | Outpatient (BNVA) | payer MEDICARE, SELFPAY | PROVIDERS: PCP Physician Assistant Medical; Visit Provider Urology | DX: N39.0 Urinary tract infection, site not specified (principal); N20.0 Calculus of kidney | CPT/HCPCS: 51798; 99212 ==

== ENCOUNTER 2024-08-09 09:39 | Emergency (ER) | payer MEDICARE, SELFPAY ==
--- NOTE | ~2024-08-09 | CT_ITS ---
EXAMINATION: CT ABDOMEN AND PELVIS WITHOUT CONTRAST CLINICAL INFORMATION: Left lower quadrant pain. Flank pain. COMPARISON: CT dated January 23, 2022. TECHNIQUE: Multidetector volumetric imaging was performed from the superior aspect of the liver through the pubic symphysis. Sagittal and coronal reformatted images were obtained on the technologist's workstation. This CT examination was performed using dose optimization techniques as appropriate, variously including the following: *Automated exposure control *Adjustment of mA and/or kV according to patient size (this includes techniques or standardized protocols for targeted exams where dose is matched to indication/reason for exam; i.e. extremities or head) *Use of iterative reconstruction technique DLP: 828 mGy-cm FINDINGS: Limited evaluation of the intra-abdominal organs and vascular structures due to lack of IV contrast. LIVER, GALLBLADDER, AND BILIARY TREE: Liver measures 17 cm with decreased attenuation. No intrahepatic iliac ductal dilatation. No pericholecystic fluid collection or gallbladder wall thickening. Common bile duct measures 3 mm.. PANCREAS: No peripancreatic fluid collections. No main pancreatic ductal dilatation. SPLEEN: Measures 9 cm. ADRENAL GLANDS: No nodular lesions. KIDNEYS AND URETERS: There is a cluster of calculi measuring no more than 5.5 mm and lower pole of the right pelvicalyceal system. No hydronephrosis seen Accunet. Calcifications in the left renal hilum, likely vascular. No calcifications within the urinary bladder lumen. There is a 1 cm fluid density within the right lateral wall of the bladder. GASTROINTESTINAL TRACT: Abundant stool. No intestinal obstruction pattern. No pneumatosis intestinalis. Appendix is normal.. ABDOMINAL WALL: Abdominal wall defects containing omental fat with associated edema pattern in the periumbilical region LYMPH NODES: Mesenteric edema pattern and prominent mesenteric lymph nodes, nonspecific. VASCULAR: Mixed plaques, abdominal aorta wall and iliac arteries without aneurysm. PELVIC VISCERA: Punctate calcifications in the region of the prostate gland without gross mass. . OSSEOUS STRUCTURES: Multilevel thoracolumbar spondylosis without acute fracture or listhesis. Less than 1 cm blastic lesions at L3 vertebral body, nonspecific. Rosita hernia, small to moderate size. Calcified plaques in the coronary arteries. CT/CT abdomen pelvis wo IV con IMPRESSION: Nonobstructing nephrolithiasis, right kidney. Fat and fluid-filled periumbilical hernia. Hiatal hernia, small to moderate size. Hepatomegaly and likely erythematosus. Coronary artery disease and atherosclerosis disease. Multilevel thoracolumbar spondylosis. Diverticulum, urinary bladder. Fleischner guidelines were followed. Electronically signed by: Shankar Shoemaker MD 08/09/2024 02:37 PM EDT RP
[2024-08-09 10:15] VITALS: BP 124/58; PULSE 61; RESP 16; TEMP 36.8; O2SAT 95; BMI 30.5
[2024-08-09 10:38] LABS: MANUAL DIFF FLAG NO
[2024-08-09 10:41] LABS: Basophils Percent Auto 0.3 % (0-2); Eosinophils Percent Auto 0.4 % (0-4); Hemoglobin 13.6 g/dl (14.0-18.0); Imm Gran Abs Auto 0.05 X10*3/uL (0.00-0.03); Imm Gran Pct Auto 0.5 % (0.0-0.4); Lymphocytes Absolute Auto 0.9 X10*3/uL (1.2-4.9); Mean Corpuscular Hemoglobin 32.1 pg (27.0-33.0); Mean Corpuscular Volume 94.3 fL (80.0-98.0); Mean Platelet Volume 10.6 fL (9.4-12.4); Monocytes Absolute Auto 0.4 X10*3/uL (0.1-1.2); Monocytes Percent Auto 4.6 % (2-11); Neutrophils Absolute Auto 7.7 x10*3/uL (2.0-8.3); Neutrophils Percent Auto 84.2 % (45-73); Platelet Count 243 X10*3/uL (160-400); Red Blood Count 4.24 X10*6/uL (4.60-5.80); White Blood Count 9.2 X10*3/uL (4.8-10.8)
[2024-08-09 10:53] LABS: Appearance Urine Clear; Color Urine Yellow; Glucose Urine UA 500 mg/dL (Negative); Leukocyte Esterase Urine Large (3+) (Negative); Nitrite Urine Negative (Negative); Specific Gravity - Urine 1.015 (1.005-1.025); UMIC TRIGGER UACC YES; Urine Blood Small (1+) (Negative); Urine Ketones Trace mg/dL (Negative); Urine Protein Negative (Neg-Trace)
[2024-08-09 11:08] LABS: Bacteria Urine None Seen (None Seen); Hyaline Casts Urine 0-2 /LPF (0-2); RBC Urine 0-2 /HPF (0-2); Squamous Epithelial Cell Urine 0-2 /HPF (0-2); UACC Culture Trigger YES; WBC Urine >50 /HPF (0-5)
[2024-08-09 11:37] LABS: Anion Gap 12 (12-20); Blood Urea Nitrogen 18 mg/dL (9-16); Calcium 9.3 mg/dL (8.4-10.2); Carbon Dioxide 28 mmol/L (22-29); Chloride 104 mmol/L (96-108); Creatinine Clr Calc Pharmacy 88.6; Estimated Glomerular Filt Rate > 60; Glucose Random 191 mg/dL (60-115); Potassium 4.3 mmol/L (3.3-5.1); Sodium 140 mmol/L (135-145)
--- NOTE | 2024-08-09 12:18 | ED_ITS ---
HPI - Abdominal Pain General Chief Complaint: Abdominal Pain Stated Complaint: back/l leg pain Time Seen by Provider: 08/09/24 12:00 Source: patient and old records reviewed Mode of arrival: ambulatory Limitations: no limitations History of Present Illness ED Provider: FLOYD SOLOMON narrative: 74 yo male with PMH of UTI, BPH, renal colic, HTN, DM, afib on pradaxa, HLD, RA here with c/o 1 day of LLQ pain radiating to L groin. MD elicited complaint: abdominal pain and flank pain Pertinent past history: kidney stones Onset (ago): day(s) (1) Pain Consistency: intermittent Location: L flank Severity: moderate Quality: stabbing Radiation: other (left hip and L groin) Migration to: no migration Exacerbating factors: movement Relieving factors: nothing Context: history of similar episodes Associated symptoms: denies other symptoms Related Data Home Medications ?Medication ?Instructions ?Recorded ?Confirmed dabigatran etexilate 150 mg 150 mg PO BID 01/23/22 01/04/24 capsule (Pradaxa) flecainide 100 mg tablet 100 mg PO Q12H 01/23/22 01/04/24 folic acid 1 mg tablet 1 mg PO DAILY 01/23/22 01/04/24 glipizide 10 mg tablet 10 mg PO BID 01/23/22 01/04/24 lisinopril 20 1 tab PO DAILY 01/23/22 01/04/24 mg-hydrochlorothiazide 12.5 mg tablet metformin 1,000 mg tablet 1,000 mg PO BID 01/23/22 01/04/24 methotrexate sodium 2.5 mg tablet 10 mg PO QWEEK 01/23/22 01/04/24 metoprolol tartrate 50 mg tablet 75 mg PO BID 01/23/22 01/04/24 pravastatin 80 mg tablet 80 mg PO DAILY 01/23/22 01/04/24 Previous Rx's ?Medication ?Instructions ?Recorded phenazopyridine 100 mg tablet 100 mg PO TID PRN spasm 4 days #12 02/16/22 (Pyridium) tabs terazosin 5 mg capsule 5 mg PO BEDTIME 90 days #90 caps 07/06/23 finasteride 5 mg tablet 5 mg PO DAILY 90 days #90 tabs 01/04/24 potassium citrate 10 mEq (1,080 20 meq (2 x 10 mEq (1,080 mg)) PO 01/04/24 mg) tablet,extended release BID 90 days #360 tabs cefuroxime axetil 250 mg tablet 250 mg PO BID 7 days #14 tabs 08/09/24 Allergies Allergy/AdvReac Type Severity Reaction Status Date / Time ciprofloxacin Allergy Mild leg pain Verified 08/09/24 10:17 Review of Systems Review of Systems Constitutional : No Weight loss, No Fever, No Chills ENT/Mouth : No sore throat, No Rhinorrhea Eyes: No Swelling, No Redness Cardiovascular : No Chest Pain, No SOB, NoEdema Respiratory : No Cough, No Sputum, No Wheezing Gastrointestinal : no Nausea, no Vomiting, no Diarrhea, positive abdominal Pain, No Hematochezia, No Melena Genitourinary : No Dysuria, No Urinary Frequency, No Hematuria, No Urgency Musculoskeletal : No joint pain, No Myalgias, No Joint Swelling Skin : No Skin Lesions, No rash Neuro : No Weakness, No Numbness, No Dizziness, No Headache Psych : No Anxiety/Panic, No Depression All other systems reviewed and are negative. [facility] Past Medical History Attestation statement: The following information was validated with the patient. Source: old records reviewed Medical History HTN (hypertension) Diabetes A-fib Psoriasis Rheumatoid arthritis Kidney calculi Family History Family History Brother Heart disease Social History Social History Household Members: None Housing: Condominium Do you presently have visiting nurse or other home services: No Alcohol intake: never Patient Tobacco Use Status: Never used Tobacco service: Yes Current occupational status: disabled Physical Exam ED Vital Signs: Vital Signs - 24 hr 08/09/24 10:15 08/09/24 15:11 Temperature 98.2 F 98.3 F Pulse Rate 61 73 Respiratory Rate 16 18 Blood Pressure 124/58 L 150/83 H Pulse Oximetry 95 97 Oxygen Delivery Method Room Air Room Air BMI result Body Mass Index 30.5 Appearance: Alert. Oriented X3. No acute distress. Eyes: Pupils equal, round and reactive to light. ENT: Pharynx normal. Neck: Normal inspection. Neck supple. CVS: Normal heart rate and rhythm. Pulses normal. Respiratory: No respiratory distress. Breath sounds normal. Abdomen: Soft and mild L CVA ttp no mass in groin noted Skin: Skin warm and dry. Normal skin color. Normal skin turgor. Extremities: No lower extremity edema. Neuro: Oriented X 3. No motor deficit. No sensory deficit. Medical Decision Making Medical Decision Making [facility] Narrative: 74 yo male with PMH of UTI, BPH, renal colic, HTN, DM, afib on pradaxa, HLD, RA here with c/o L flank pain radiationg to L groin but no trauma, no mass, distal NV intact he denies associated symptoms at this time will need labs, UA, CT scan for renal colic, diverticulitis, hernia, mass. Differential Diagnosis Differential Diagnoses: The differential diagnosis associated with the presentation includes renal colic, constipation, diverticulitis, hernia, UTI Admission/Observation Consideration of admission/observation: Escalation of care including admission/observation considered no vomiting, not toxic, well hydrated, no signs of sepsis at this time stable for DC no obstructing stone Lab Data [facility] Lab Attestation statement: I reviewed the patient's lab results. 08/09/24 10:32 08/09/24 11:17 Labs: Lab Results 08/09/24 08/09/24 08/09/24 Range/Units 10:32 11:17 13:07 WBC 9.2 (4.8-10.8) X10*3/uL RBC 4.24 L (4.60-5.80) X10*6/uL Hgb 13.6 L (14.0-18.0) g/dl Hct 40.0 L (42.0-52.0) % MCV 94.3 (80.0-98.0) fL MCH 32.1 (27.0-33.0) pg MCHC 34.0 (31.0-36.0) g/dl RDW 14.0 (11.0-16.0) % Plt Count 243 (160-400) X10*3/uL MPV 10.6 (9.4-12.4) fL Immature Gran % (Auto) 0.5 H (0.0-0.4) % Neut % (Auto) 84.2 H (45-73) % Lymph % (Auto) 10.0 L (20-40) % [place] % (Auto) 4.6 (2-11) % Eos % (Auto) 0.4 (0-4) % Baso % (Auto) 0.3 (0-2) % Lymph # (Auto) 0.9 L (1.2-4.9) X10*3/uL [place] # (Auto) 0.4 (0.1-1.2) X10*3/uL Eos # (Auto) 0.0 (0.0-0.4) X10*3/uL Baso # (Auto) 0.0 (0.0-0.2) X10*3/uL Abs Immat Gran (auto) 0.05 H (0.00-0.03) X10*3/uL Absolute Neuts (auto) 7.7 (2.0-8.3) x10*3/uL Absolute Nucleated RBC 0.000 (0.0-0.012) X10*3/uL Nucleated RBC % (auto) 0.0 (0.0-0.2) /100WBC Sodium 140 (135-145) mmol/L Potassium 4.3 (3.3-5.1) mmol/L Chloride 104 (96-108) mmol/L Carbon Dioxide 28 (22-29) mmol/L Anion Gap 12 (12-20) BUN 18 H (9-16) mg/dL Creatinine 0.89 (0.5-1.4) mg/dL Estim Creat Clear Calc 88.6 Estimated GFR > 60 Random Glucose 191 H (60-115) mg/dL Lactic Acid 1.2 (0.5-2.0) mmol/L Calcium 9.3 (8.4-10.2) mg/dL Total Bilirubin 0.5 (0.0-1.0) mg/dL Direct Bilirubin 0.2 (0.0-0.5) mg/dL AST 26 (5-37) U/L ALT 35 (0-40) U/L Alkaline Phosphatase 56 (39-117) U/L Total Protein 6.6 (6.5-8.0) g/dL Albumin 3.8 (3.5-5.0) g/dL Lipase 31 (8-78) U/L Urine Color Yellow Urine Appearance Clear Urine pH 6.0 (5.0-9.0) Ur Specific [place] 1.015 (1.005-1.025) Urine Protein Negative (Neg-Trace) mg/dL Urine Glucose (UA) 500 H (Negative) mg/dL Urine Ketones Trace (Negative) mg/dL Urine Blood Small (1+) H (Negative) Urine Nitrite Negative (Negative) Ur Leukocyte Esterase Large (3+) H (Negative) Urine RBC 0-2 (0-2) /HPF Urine WBC >50 H (0-5) /HPF Ur Squamous Epith Cells 0-2 (0-2) /HPF Urine Bacteria None Seen (None Seen) Hyaline Casts 0-2 (0-2) /LPF Independent Interpretation I performed an independent interpretation of an: CT Scan (no obstructing stone, bladder diverticulum) Radiology Impression Discussion of test interpretation with radiology: I have reviewed the radiologist's reading. External Record Review External record reviewed: Office record and Prior outpatient labs Prescription Management I considered prescription management with: Antibiotic Medications Administered Discontinued Medications Generic Name Dose Route Start Last Admin Trade Name Freq PRN Reason Stop Dose Admin Ceftriaxone Sodium 1 gm 08/09/24 12:42 08/09/24 13:29 Ceftriaxone Sodium 1 Gm Vial IVPUSH 08/09/24 12:43 1 gm ONCE ONE Administration Discharge Plan Discharge Clinical Impression: Acute lower UTI Patient Disposition: Home, Self-Care Instructions: Urinary Tract Infection in Men (ED) Additional Instructions: labs reassuring CT scan no obstructing stones but has bladder diverticulum (pouch) please make sure you follow up with your doctor and urologist return for fevers, vomiting, severe pain or any other concerns start antibiotic tomorrow On a cephalosporin?antibiotic, softer bowel movements are to be expected. Call your provider if you move your bowels more than 4 times a day, your bowel movements are almost all liquid, or you get a rash.?? CT/CT abdomen pelvis wo IV con IMPRESSION: Nonobstructing nephrolithiasis, right kidney. Fat and fluid-filled periumbilical hernia. Hiatal hernia, small to moderate size. Hepatomegaly and likely erythematosus. Coronary artery disease and atherosclerosis disease. Multilevel thoracolumbar spondylosis. Diverticulum, urinary bladder. Prescriptions: New cefuroxime axetil 250 mg tablet 250 mg PO BID 7 Days Qty: 14 0RF No Action phenazopyridine [Pyridium] 100 mg tablet 100 mg PO TID PRN (Reason: spasm) 4 Days Qty: 12 0RF glipizide 10 mg Tablet 10 mg PO BID pravastatin 80 mg Tablet 80 mg PO DAILY methotrexate sodium 2.5 mg Tablet 10 mg PO QWEEK Patient Comments: ONLY TOOK ONE WEEK OUT OF 4 WEEKS SO FAR metformin 1,000 mg Tablet 1,000 mg PO BID flecainide 100 mg Tablet 100 mg PO Q12H metoprolol tartrate 50 mg Tablet 75 mg PO BID folic acid 1 mg Tablet 1 mg PO DAILY Pradaxa 150 mg Capsule 150 mg PO BID lisinopril-hydrochlorothiazide 20-12.5 mg Tablet 1 tab PO DAILY terazosin 5 mg capsule 5 mg PO BEDTIME 90 Days Qty: 90 1RF finasteride 5 mg tablet 5 mg PO DAILY 90 Days Qty: 90 3RF potassium citrate 10 mEq (1,080 mg) tablet extended release 20 meq PO BID 90 Days Qty: 360 3RF Interventions: ED Discharge Assessment Last Done: 08/09/24 15:11 Discharge Date/Time: 08/09/24 15:12 Print Language: Luxembourgish
[2024-08-09 13:24] LABS: Lactic Acid 1.2 mmol/L (0.5-2.0)
[2024-08-09] MEDS: cefTRIAXone sodium 1 GM VIAL IVPUSH (13:29)
[2024-08-09 13:46] LABS: Alanine Aminotransferase 35 U/L (0-40); Albumin Level 3.8 g/dL (3.5-5.0); Alkaline Phosphatase 56 U/L (39-117); Aspartate Amino Transferase 26 U/L (5-37); Bilirubin Direct 0.2 mg/dL (0.0-0.5); Bilirubin Total 0.5 mg/dL (0.0-1.0); Lipase 31 U/L (8-78); Total Protein 6.6 g/dL (6.5-8.0)
[2024-08-09 15:11] VITALS: BP 150/83; PULSE 73; RESP 18; TEMP 36.8; O2SAT 97
== END 2024-08-09 15:12 | disposition home or self-care (01) ==
PROVIDERS: Emergency Provider Emergency Medicine; PCP Physician Assistant Medical
DX: N39.0 Urinary tract infection, site not specified (principal); R10.32 Left lower quadrant pain; I10 Essential (primary) hypertension; E11.9 Type 2 diabetes mellitus without complications; I48.91 Unspecified atrial fibrillation; M06.9 Rheumatoid arthritis, unspecified; Z79.899 Other long term (current) drug therapy
CPT/HCPCS: 36415; 74176; 80048; 80076; 81001; 83605; 83690; 85025; 87040; 87086; 87088; 87186; 96374; 99282; 99284; J0696

== ENCOUNTER → 2024-08-09 12:42 | Outpatient (BNV) | payer MEDICARE, SELFPAY | PROVIDERS: Emergency Provider Emergency Medicine; PCP Physician Assistant Medical; Visit Provider Radiology Diagnostic Radiology | DX: R10.9 Unspecified abdominal pain (principal) | CPT/HCPCS: 74176 ==

== ENCOUNTER 2024-09-22 14:44 | Outpatient (AMB) | payer MEDICARE, SELFPAY ==
--- NOTE | 2024-09-22 14:49 | MHC.OFFVIS ---
Intake Visit Reasons: ER follow up Intake Note: Patient is present for ED F/U Urology Medication:TERAZOZIN,POTASSIUM,FINASTERIDE Antibiotic Allergy:CIPROFLOXACIN Blood Thinner:NONE Database Coordinator Required: No Allergies ciprofloxacin Allergy (Mild, Verified 09/22/24 14:51) leg pain HPI Comments Details: Luis Enrique is a pleasant male. He is a patient of Dr. Mcdonald. He seen for the following urologic conditions - nephrolithiasis - setting diabetes - lower urinary tract symptoms Recent UTI Pansensitive Enterococcus UA clear today Urinary tract infection Pansensitive Enterococcus Lower urinary tract symptoms Combination agent finasteride and terazosin Nephrolithiasis Stent placement right side January 2022 Imaging 8 mm mid ureteric stone - 01/01 renal ultrasound 5 mm right midpole stone unchanged Prior potassium citrate since diabetic PFSH Medical History HTN (hypertension) Diabetes A-fib Psoriasis Rheumatoid arthritis Kidney calculi Family History Brother Heart disease Social History Household Members: None Housing: [facility] Do you presently have visiting nurse or other home services: No Alcohol intake: never Patient Tobacco Use Status: Never used Tobacco service: Yes Current occupational status: disabled Review of Systems Const Denies chills and Denies fever(s) Card Reports no additional complaints and Denies syncope Resp Denies cough GI Denies abdominal pain and Denies heartburn Reports as per HPI and Denies change in libido Neuro Denies syncope Psych Denies change in libido Endo Denies change in libido Physical Exam Const General: cooperative, healthy appearing, comfortable and no acute distress Orientation/consciousness: patient oriented x3 HEENT Face and sinus: Yes normal facial exam Mouth: moist mucous membranes Neck Neck: Yes normal visual inspection, Yes full ROM and Yes trachea midline Chest Chest palpation & inspection: normal inspection of the chest Resp Effort & Inspection: normal respiratory effort, able to speak in complete sentences and no respiratory distress GI Inspection: Yes normal to inspection Back/Spine/Pelvis Cervical Spine: normal cervical lordosis Thoracic/Lumbar Spine: thoracic and lumbar spine normal to inspection Skin General skin exam: no rashes or lesions noted Neuro General: patient oriented x3, gait normal, tone normal and moves all extremities Extrem General: Yes normal to inspection and Yes capillary refill normal Results AMB Urinalysis, Automated UA Leukoctes 0 Pablo/uL Last Edit by ROSA Menezes on 09/22/24 15:05 UA Nitrite Negative Last Edit by Leonel Higgins [facility] on 09/22/24 15:05 UA Urobilinogen 0.2 mg/dL Last Edit by Leonel Higgins [facility] on 09/22/24 15:05 UA Protein 15 mg/dL Last Edit by Leonel Higgins [facility] on 09/22/24 15:05 UA pH 5.0 Last Edit by Leonel Higgins [facility] on 09/22/24 15:05 UA Blood 0 Dmitry/uL Last Edit by Leonel Higgins [facility] on 09/22/24 15:05 UA Specific [place] 1.030 Last Edit by Leonel Higgins [facility] on 09/22/24 15:05 UA Ketone Negative Last Edit by Leonel Higgins [facility] on 09/22/24 15:05 UA Bilirubin 0 mg/dL Last Edit by Leonel Higgins [facility] on 09/22/24 15:05 UA Glucose 1000 mg/dL Last Edit by Leonel Higgins [facility] on 09/22/24 15:05 Results Reviewed Results Reviewed: Laboratory Last Values Urine pH (Auto) 5.0 09/22/24 15:05 Specific [place] (Auto) 1.030 09/22/24 15:05 Urine Protein (Auto) 15 mg/dL 09/22/24 15:05 Glucose (UA)(Auto) 1000 mg/dL 09/22/24 15:05 Urine Ketones (Auto) Negative 09/22/24 15:05 Urine Blood (Auto) 0 Dmitry/uL 09/22/24 15:05 Urine Nitrite (Auto) Negative 09/22/24 15:05 Urine Bilirubin (Auto) 0 mg/dL 09/22/24 15:05 Urine Urobilinogen (Auto) 0.2 mg/dL 09/22/24 15:05 Leukocyte Esterase (Auto) 0 Pablo/uL 09/22/24 15:05 Assessment & Plan Assessment & Plan (1) Complicated urinary tract infection: Code(s): N39.0 - Urinary tract infection, site not specified Category: Medical (2) Lower urinary tract symptoms due to benign prostatic hyperplasia: Code(s): N40.1 - Benign prostatic hyperplasia with lower urinary tract symptoms Category: Medical (3) Nephrolithiasis: Code(s): N20.0 - Calculus of kidney Category: Medical Plan Follow-up December with bladder ultrasound for emptying Orders: Orders US bladder 3 Months N40.1 - Benign prostatic hyperplasia with lower urinary tract symptoms, R39.12 - Poor urinary stream AMB Urinalysis Automated 09/22/24 Z13.9 - Encounter for screening, unspecified Patient Instructions: Imaging studies, laboratory and physical exam results were discussed and reviewed in detail. No major barriers to patient understanding were identified. An opportunity to ask questions regarding the treatment plan was provided. All questions were answered. The patient expressed understanding and agreement with the above treatment plan. The patient is aware they should contact our office by phone for worsening of their current condition or the appearance of new urologic symptoms. Compliance is encouraged with any medications and followup testing that is ordered. It is a privilege to participate in the urologic care of your patient. If you have any questions or concerns regarding treatment for the above conditions, or other urologic issues, please do not hesitate to contact me. The office telephone contact is [phone]. This note is constructed using voice recognition software. While every effort has been made to ensure accuracy alarm technician errors may have been included. Yours sincerely, Dr Ebenezer Perez MD, [facility] - Urology Providers of Expert, Compassionate Care for the Genitourinary System Coding Level of Care Code Est Pt Level 4 (61312) Diagnoses Complicated urinary tract infection N39.0 Lower urinary tract symptoms due to benign prostatic hyperplasia N40.1 Nephrolithiasis N20.0
== END 2024-09-22 15:28 | disposition home or self-care (01) ==
PROVIDERS: PCP Physician Assistant Medical; Visit Provider Urology
DX: Z13.9 Encounter for screening, unspecified (principal)
CPT/HCPCS: 99214

== ENCOUNTER → 2024-09-22 14:44 | Outpatient (BNVA) | payer MEDICARE, SELFPAY | PROVIDERS: PCP Physician Assistant Medical; Visit Provider Urology | DX: N40.1 Benign prostatic hyperplasia with lower urinary tract symptoms (principal); N20.0 Calculus of kidney; N39.0 Urinary tract infection, site not specified; R39.12 Poor urinary stream | CPT/HCPCS: 81003; 99212 ==

== ENCOUNTER 2024-12-11 12:53 | Outpatient (REF) | payer MEDICARE, SELFPAY ==
--- NOTE | ~2024-12-11 | US_ITS ---
CLINICAL HISTORY: N20.0 - Calculus of kidney US Renal Comparison: None Findings: The kidneys are normal in size. The right kidney measures 11.7 cm in length, and left kidney measures 12.3 cm in length. Bilateral renal cortical echogenicity is within normal limits. 1.0 cm right lower renal calcification is present with twinkle artifact. 1.5 cm anechoic left parapelvic cyst is present. There is no hydronephrosis. Prostate gland is normal in size, measuring 2.6 x 2.7 x 2.8 cm with a total volume of 10.2 mL. 2.1 cm anterosuperior urinary bladder diverticulum is present. Prevoid urinary bladder volume measures 113 mL. Postvoid residual urinary bladder volume is mildly elevated at 57.4 mL. IMPRESSION: 1. 1.0 cm nonobstructive right lower renal stone. 2. 1.5 cm simple left parapelvic cyst. 3. 2.1 cm anterosuperior urinary bladder diverticulum. 3. Mildly elevated postvoid residual of 57.4 mL. This document has been electronically signed by: Zackary Wall on 12/12/2024 10:26:01
--- OUTSIDE RECORDS SUMMARY | 2024-12-11 15:03 | XMS_ITS | Clinical Summary ---
Author Organization [employer] [facility] [employer] Address [address] [place] [address] [address] [place] [address] Care Team Providers Care Copy Technician Name Role Phone Unavailable Primary Care Provider Unavailabl e Allergies No known active allergies Medications cholecalciferol (Vitamin D-3) 25 MCG (1000 UT) tablet Active dabigatran etexilate (Pradaxa) 150 MG capsule Take 1 capsule by mouth every 12 (twelve) hours. 07/28/2022 Active flecainide (Tambocor) 100 MG tablet Take 100 mg by mouth. 07/31/2016 Active folic acid (Folvite) 1 MG tablet Take 1 mg by mouth. 07/28/2022 Active metFORMIN (Glucophage) 1000 MG tablet Take 1 tablet by mouth every 12 (twelve) hours. 07/28/2022 Active metoprolol tartrate (Lopressor) 75 MG tablet Take 1 tablet by mouth every 12 (twelve) hours. Active pravastatin (Pravachol) 80 MG tablet Take 1 tablet by mouth at bed time. 07/28/2022 Active hydroCHLOROthia zide (HYDRODiuril) 12.5 MG tablet Take 1 tablet by mouth at bed time. Active lisinopril 10 MG tablet Take 1 tablet by mouth at bed time. Active methotrexate 2.5 MG tablet Take 15 mg by mouth. 07/28/2022 Active potassium citrate CR (Urocit-K-10) 10 mEq ER tablet Take 20 mEq by mouth. 07/28/2022 Active tamsulosin (Flomax) 0.4 MG 24 hr capsule Take 0.4 mg by mouth. 07/29/2022 Active Active Problems No known active problems Social History Tobacco Use Types Packs/Day Years Used Date Smoking Tobacco: Former Cigarettes Passive Smoke Exposure: Never Smokeless Tobacco: Never Tobacco Cessation:Counseling Given: Not Answered Sex and Gender Information Value Date Recorded Sex Assigned at Male 08/10/2022 10:30 AM EDT Legal Sex Male 10:30 AM EDT Gender Identity Male 08/10/2022 10:30 AM EDT Sexual Orientation Straight 08/10/2022 10 :30 AM EDT Last Filed Vital Signs Vital Sign Reading Time Taken Comments Blood Pressure 124/64 06/01/2023 1:48 PM EDT Pulse 62 06/01/2023 1:48 PM EDT Temperature - - Respiratory Rate - - Oxygen Saturation - - Inhaled Oxygen Concentration - - Weight - - Height - - Body Mass Index - - Plan of Treatment Health Maintenance Due Date Last Done Comments CT Colonography 1949 Colonoscopy 1949 Colorectal Cancer Screening 1949 Depression Screening 1949 FIT DNA/Cologuard 1949 FIT 1949 FOBT 1949 Lipid Panel 1949 SDOH Screening 1949 Sigmoidoscopy 1949 Alcohol/Substance Use Screening 1961 Hepatitis C Screening 1967 DTaP/Tdap/Td Vaccines (1 - Tdap) 1968 Zoster Vaccines (2 of 3) 06/23/2018 04/28/2018, 11/2017 Dental Oral Exam 12/03/2023 06/01/2023, 07/2021, 03/16/2019, Additional history exists Dental Prophylaxis 12/03/2023 06/01/2023, 0 10/16/2021, 12/18/2020, Additional history exists RSV Patients and Patients Aged 60 years or older (1 - 1-dose 75+ series) 2024 Tobacco Screening 06/01/2024 06/01/2023 Dental X-Ray: Bitewings 06/02/2024 06/01/20 23, 03/16/2022, 12/18/2020, Additional history exists COVID-19 Vaccine ( season) 2024 07/29/2021, 01/07/2021, 12/17/2020 Influenza Vaccine (#1) 2024 , 07/03/2022, 07/03/2021, Additional history exists Dental X-Ray: Full Mouth 06/02/2026 06/01/2023, 07/12 Pneumococcal Vaccine: 50+ Years Completed 11/02/2019, 02/09/2018 HIB Vaccines Aged Out No longer eligi ble based on patient's age to complete this topic HPV Vaccines Aged Out No longer eligi ble based on patient's age to complete this topic Hepatitis A Vaccines Aged Out No long er eligible based on patient's age to complete this topic Hepatitis B Vaccines Aged Out No long er eligible based on patient's age to complete this topic IPV Vaccines Aged Out No longer eligi ble based on patient's age to complete this topic Meningococcal Vaccine Aged Out No drew arnol eligible based on patient's age to complete this topic RSV under 20 months Aged Out No longe r eligible based on patient's age to complete this topic Rotavirus Vaccines Aged Out No longer eligible based on patient's age to complete this topic Procedures Procedure Name Priority Date/Time Associated Diagnosis Comments PROPHYLAXIS - ADULT Routine 06/01/2023 2 :00 PM EDT INTRAORAL - COMPLETE SERIES OF RADIOGRAPHIC IMAGES Routine 06/01/2023 2:00 PM EDT COMPREHENSIVE ORAL EVALUATION - NEW OR ESTABLISHED PATIENT Routine 06/01/2023 2:00 PM EDT from Last 3 Months or Most Recently Relevant to Health Maintenance
--- OUTSIDE RECORDS SUMMARY | 2024-12-11 15:03 | XMS_ITS | Encounter Summary ---
Author Organization [facility] [employer] [facility] Address [address] [place] [address] Care Team Providers Care Crisis Manager Name Role Phone Unavailable Primary Care Provider Unavailabl e Encounter Details Date Type Department Care Team (Latest Contact Info) Description 12/18/2020 Abstract [facility] CONVERSIONS Dental, Provider, DDS Social History Tobacco Use Types Packs/Day Years Used Date Smoking Tobacco: Never Assessed Sex and Gender Information Value Date Recorded Sex Assigned at Male 08/10/2022 10:30 AM EDT Legal Sex Male 10:30 AM EDT Gender Identity Male 08/10/2022 10:30 AM EDT Sexual Orientation Straight 08/10/2022 10 :30 AM EDT documented as of this encounter Plan of Treatment Not on file documented as of this encounter Visit Diagnoses Not on filedocumented in this encounter
--- OUTSIDE RECORDS SUMMARY | 2024-12-11 15:03 | XMS_ITS | Encounter Summary ---
Author Organization [facility] [employer] [facility] Address [address] 7t [place] [address] Care Team Providers Care Java Lead Name Role Phone Unavailable Primary Care Provider Unavailabl e Encounter Details Date Type Department Care Team (Latest Contact Info) Description 10/23/2019 Abstract C CONVERSIONS Dental, Provider, DDS Social History Tobacco [...]
--- OUTSIDE RECORDS SUMMARY | 2024-12-11 15:04 | XMS_ITS | Encounter Summary ---
Author Organization [facility] [employer] [facility] Address [address] [place] [address] Care Team Providers Care Wireless Retail Manager Name Role Phone Unavailable Primary Care Provider Unavailabl e Encounter Details Date Type Department Care Team (Latest Contact Info) Description 10/19/2018 Abstract C CONVERSIONS Dental, Provider, DDS Social [...]
--- OUTSIDE RECORDS SUMMARY | 2024-12-11 15:04 | XMS_ITS | Clinical Summary ---
Author Organization [facility] it Address [address] [place] [address] Care Team Providers Care Electrical Control Assembler Name Role Phone Sha Mcdonald Primary Care Provider [phone] Allergies No known active allergies Medications SITagliptin phosphate (Januvia) 100 mg tablet Take 1 Tablet by mouth. 4 Active finasteride (PROSCAR) 5 mg tablet Take 1 tablet (5 mg total) by mouth 1 (one) time each day. 3 Active terazosin (HYTRIN) 5 mg capsule Take 1 Capsule by mouth at bedtime. 3 Active potassium bicarbonate (EFFER-K) 10 mEq effervescent tablet Take 2 tablets (20 mEq total) by mouth 2 (two) times a day. 2 Active metoprolol tartrate (LOPRESSOR) 25 mg tablet Take 1 tablet (25 mg total) by mouth 2 (two) times a day. 2 Active methotrexate 2.5 mg tablet Take 6 tablets (15 mg total) by mouth 1 (one) time per week 2 Active cyanocobalamin (VITAMIN B-12) 100 mcg tablet Take 1 tablet (100 mcg total) by mouth 1 (one) time each day. 2 Active lisinopriL (PRINIVIL,ZESTRIL ) 10 mg tablet Take 1 tablet (10 mg total) by mouth 1 (one) time each day. 2 Active folic acid (FOLVITE) 1 mg tablet Take 1 tablet (1,000 mcg total) by mouth 1 (one) time each day. 2 Active dabigatran etexilate (PRADAXA) 150 mg capsule Take by mouth daily. 2 tablets daily Active pravastatin (PRAVACHOL) 80 mg tablet Take 80 mg by mouth daily. Active metFORMIN (GLUCOPHAGE) 1,000 mg tablet Take 1,000 mg by mouth 2 times daily (with meals). 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 Overview (09/22/2024): L3 sclerotic lesion patient declines further evaluation Psoriatic arthritis 05/20/2022 Nephrolithiasis 05/20/2022 Type 2 diabetes mellitus wit h diabetic polyneuropathy, without long-term current use of insulin 01/16/2019 Obstructive sleep apnea 10/14/2017 Overview (09/22/2024): [facility] Home Polysomnogram: Date 06/30/2016; AHI 23, Unclassified apneas 0; Obstructive apneas 13; Central apneas 16; Mixed apneas 1; hypopneas 133; average oxygen saturation 94% (lowest 86% without saturations <88% for 5% or more of study) - Obstructive Sleep Apnea - moderate; mostly hypopneas with central apneas; no sleep related hypoventilation by 2016 home polysomnogram. Felix Montes epoch 0% [facility] Polysomn[facility] treatment study. Date 10/08/2017. SE 86 % SM 86 %; spent 19 % of the study in REM. At the optimal pressure of 13 CPAP; RDI 20 (AHI 18), Central apneas 19; Obstructive apneas 1; Mixed apneas 0; hypopneas 31; RERAs 5; and, average oxygen saturation was 93%. For the entire study, PLMs ~23. Dr Arora suggested initial pressure CPAP @ 13. Obesity 11/01/2015 Atrial fibrillation 04/30/2014 Overview (09/22/2024): On pradaxa - Cardioversion 08/20/14 HTN (hypertension) 04/26/2014 Hyperlipidemia 04/26/2014 Immunizations Name Administration Dates Next Due Influenza trivalent, 0.5mL ( Fluad) 65yo and older 08/02/2024,07/30/2023,08/05/2022,2018,07/18/2018 Influenza trivalent, 0.5mL, preservative free (Fluarix; FluLaval; Fluzone) ages 6mo and older (Afluria) 3 years and older 06/27/2017 Influenza, Unspecified 08/01/2014 Pfizer SARS-CoV-2 COVID-19, mRNA, LNP-S, preservative free 01/07/2021,12/10/2020 Pneumococcal conjugate 13 va lent (Prevnar 13, PCV13) 2mo and older 02/09/2018 Zoster recombinant (Shingrix ) 19yo and older 02/09/2018 Surgical History Surgery Date Site/Laterality Comments VENTRAL HERNIA REPAIR PROCEDURE: HISTORICAL VTRL WALL HERNIA RE VENTRAL HERNIA REPAIR PROCEDURE: HISTORICAL VTRL WALL HERNIA RE OTHER SURGICAL HISTORY 01/2022 PROCEDURE: [place] PYELOTOMY WITH REMOVAL CALCULUS; COMMENT: Hospitalized for 6 mm stone with stent placement and subsequent removal Dr. Perez Medical History Medical History Date Comments Hyperlipidemia 04/26/2014 DX:Hyperlipidemi a HTN (hypertension) 04/26/2014 DX:HTN (hyper tension) DM (diabetes mellitus), type 2, uncontrolled 07/23/2015 DX:DM (diabetes mellitus), t ype 2, uncontrolled Atrial fibrillation (CMS/HCC) 04/30/2014 DX :Atrial fibrillation (HCC); COMMENT: on Pradaxa Family History Relation Name Status Comments Brother 1 Alive mi in 40's Brother 2 Alive Father etoh Mother (Age 82) lung cance r Sister Alive Social History Tobacco Use Types Packs/Day Years Used Date Smoking Tobacco: Former Cigarettes 1 9 0 02/12/1988 - 02/11/1997 Smokeless Tobacco: Former Alcohol Use Standard Drinks/Week Comments Yes 0.8 (1 standard drink = 0.6 oz p ure alcohol) Sex and Gender Information Value Date Recorded Sex Assigned at Not on file Legal Sex Male 8:19 AM EST Gender Identity Not on file Sexual Orientation Not on file Obstetrics History Last Filed Vital Signs Vital Sign Reading Time Taken Comments Blood Pressure 130/80 08/02/2024 1:51 PM EDT Pulse 72 08/02/2024 1:34 PM EDT Temperature - - Respiratory Rate - - Oxygen Saturation - - Inhaled Oxygen Concentration - - Weight 104 kg (229 lb 9.6 oz) 08/02/2024 1:34 PM EDT Height 172.7 cm (5' 8 ) 08/02/2024 1:34 PM EDT Body Mass Index 34.91 08/02/2024 1:34 PM EDT Plan of Treatment Upcoming Encounters Date Type Department Care Team (Late st Contact Info) Description 02/02/2025 2:30 PM EDT Office Visit Adult Medicine [facility] [address] [place] [address] Sha Mcdonald PA [address] [place] [address] Health Maintenance Due Date Last Done Comments DTaP,Tdap,and Td Vaccines (1 - Tdap) 1969 Pneumococcal Vaccine: 50+ Years (2 of 2 - PPSV23) 04/06/2018 02/09/2018 Zoster Vaccines (2 of 2) 04/06/2018 02/09/2018 COVID-19 Vaccine (3 - Pfizer risk series) 02/04/2021 01/07/2021, 12/10/2020 Depression Screening 09/19/2022 Falls Risk Assessment 09/19/2022 Social Influencers of Health Screening 09/19/2022 RSV Immunization Patients 60+ Years Old (1 - 1-dose 75+ series) 2024 Diabetes: Blood Sugar Control Test (HGBA1C) 01/26/2025 07/28/2024, 07/28/2024 Diabetes: Annual Foot Exam 06/21/2025 06/21/2024 Diabetes: Annual Retina Eye Exam 06/27/2025 06/27/2024 Diabetes: Annual Urine Albumin-Creatinine Ratio (uACR) 07/28/2025 07/28/2024 Diabetes: Annual GFR (Glomerular Filtration Rate) 07/28/2025 07/28/2024, 07/28/2024 Hypertension/CHF/CAD Annual BMP Blood Test 07/28/2025 07/28/2024, 07/28/2024 Colorectal Cancer Screening: Stool Based Tests (FOBT/FIT) 08/09/2025 08/09/2024 Cholesterol Screening (Lipid Panel) 07/28/2029 07/28/2024, 07/28/2024 Abdominal Aortic Aneurysm (AAA) Screen Completed 04/09/2016 Hepatitis C Screening Completed 09/28/2016 Influenza Vaccine Completed 08/02/2024, , 08/05/2022, Additional history exists HIB Vaccines Aged Out No longer eligi [...] on patient's age to complete this topic MMR Vaccines Aged Out No longer eligi ble based on patient's age to complete this topic Meningococcal ACWY Vaccine Aged Out N o longer eligible based on patient's age to complete this topic Meningococcal B Vacine Aged Out No lo nger eligible based on patient's age to complete this topic RSV Immunization Patients Under 20 months Aged Out No longer eligible based on patient's age to complete this topic Varicella Vaccines Aged Out No longer eligible based on patient's age to complete this topic Procedures Procedure Name Priority Date/Time Associated Diagnosis Comments STOOL BASED TEST Routine 08/09/2024 URINE ALBUMIN CREATININE RATIO Routine 07/28/2024 ANNUAL BMP BLOOD TEST Routine 07/28/2024 HEMOGLOBIN A1C Routine 07/28/2024 LIPID PANEL Routine 07/28/2024 DIABETES EYE EXAM Routine 06/27/2024 DIABETES FOOT EXAM Routine 06/21/2024 HEPATITIS C SCREENING Routine 09/28/2016 ABDOMINAL AORTIC ANEURYSM SCRREN Routine 04/09/2016 from Last 3 Months or Most Recently Relevant to Health Maintenance Results * Stool Based Tests (FOBT/FIT) (08/09/2024) Colorectal Cancer Screening: Stool Based Tests abstracted ,negative Result [facility] Provider HEALTH MAINTENANCE Final Result * Urine Albumin Creatinine Ratio (07/28/2024) [facility] Urine Albumin Creatinine Ratio abstracted Result [facility] HEALTH MAINTENANCE Final Result * Annual BMP Blood Test (07/28/2024) [facility] Annual BMP Blood Test abstracted Result [facility] HEALTH MAINTENANCE Final Result * (ABNORMAL) Hemoglobin A1c (07/28/2024) [facility] Hemoglobin A1C 7.0(A) <=6.5 % Blood Venous blood specimen / Unknown Result [facility] Provider LAB BLOOD ORDERABLES Najma l Result * Lipid panel (07/28/2024) [facility] LDL/HDL Ratio 3 0 - 4 Triglycerides 81 0 - 150 mg/dL Cholesterol 141 0 - 200 mg/dL HDL 47 >=40 mg/dL LDL Cholesterol 78 0 - 100 mg/dL Blood Venous blood specimen / Unknown Result [facility] LAB BLOOD ORDERABLES Najma l Result * Diabetes Eye Exam (06/27/2024) [facility] Diabetes: Annual Retina Eye Exam abstracted Result [facility] HEALTH MAINTENANCE Final Result * Diabetes Foot Exam (06/21/2024) [facility] Diabetes: Annual Foot Exam abstracted Result [facility] HEALTH MAINTENANCE Final Result * Hepatitis C Screening (09/28/2016) [facility] Hepatitis C Screening abstracted Result [facility] HEALTH MAINTENANCE Final Result * Abdominal Aortic Aneurysm Screen (04/09/2016) [facility] Abdominal Aortic Aneurysm (AAA) Screening abstracted Anatomical Region Laterality Modality Other us Historical Provider MD HEALTH MAINTENANCE Final Result from Last 3 Months or Most Recently Relevant to Health Maintenance Care Teams Electrical Control Assembler Relationship Specialty Start Date End Date Sha Mcdonald PA PCP - General Internal Medicine 10/23/20
[2024-12-11 16:56] LABS: Prostate Specific Antigen 0.32 ng/mL (<0.05-4.0)
== END 2024-12-11 12:54 | disposition home or self-care (01) ==
LOC: HO.HMGCX 12:53
PROVIDERS: PCP Physician Assistant Medical; Visit Provider Urology
DX: N20.0 Calculus of kidney (principal); N40.1 Benign prostatic hyperplasia with lower urinary tract symptoms; R39.12 Poor urinary stream; Z12.5 Encounter for screening for malignant neoplasm of prostate
CPT/HCPCS: 36415; 76770; 84153

== ENCOUNTER → 2024-12-11 12:55 | Outpatient (BNV) | payer MEDICARE, SELFPAY | PROVIDERS: PCP Physician Assistant Medical; Visit Provider Radiology Vascular & Interventional Radiology | DX: N20.0 Calculus of kidney (principal); N28.1 Cyst of kidney, acquired; N32.3 Diverticulum of bladder | CPT/HCPCS: 76770 ==

== ENCOUNTER 2025-01-03 14:54 | Outpatient (AMB) | payer MEDICARE, SELFPAY ==
--- NOTE | 2025-01-03 14:57 | A.OFFVIS_ITS ---
Intake Visit Reasons: 1Y/US Intake Note: Patient is present for 1Y F/U Urology Medication:TERAZOZIN,POTASSIUM,FINASTERIDE Antibiotic Allergy:CIPROFLOXACIN Blood Thinner:NONE Veterinary Technician Instructor Required: No Allergies ciprofloxacin Allergy (Mild, Verified 01/03/25 14:58) leg pain HPI Comments Details: Luis Enrique is a pleasant male. He is a patient of Dr. Mcdonald. He seen for the following urologic conditions - nephrolithiasis - setting diabetes - lower urinary tract symptoms UA clear today Urinary tract infection Prior Pansensitive Enterococcus Lower urinary tract symptoms Combination agent finasteride and terazosin PSA - 01/02 0.32 Nephrolithiasis Stent placement right side January 2022 Imaging 8 mm mid ureteric stone - 01/01 renal ultrasound 5 mm right midpole stone unchanged - 01/02 renal ultrasound 5 mm right mid pole unchanged Prior potassium citrate since diabetic PFSH Medical History HTN (hypertension) Diabetes A-fib Psoriasis Rheumatoid arthritis Kidney calculi Family History Brother Heart disease Social History Household Members: None Housing: Condominium Do you presently have visiting nurse or other home services: No Alcohol intake: never Patient Tobacco Use Status: Never used Tobacco service: Yes Current occupational status: disabled Results AMB Urinalysis, Automated UA Leukoctes 0 Pablo/uL Last Edit by ROSA Menezes on 01/03/25 15:13 UA Nitrite Negative Last Edit by ROSA Menezes on 01/03/25 15:13 UA Urobilinogen 3.5 mg/dL Last Edit by ROSA Menezes on 01/03/25 15:1 3 UA Protein 15 mg/dL Last Edit by ROSA Menezes on 01/03/25 15:13 UA pH 5.0 Last Edit by ROSA Menezes on 01/03/25 15:13 UA Blood 0 Dmitry/uL Last Edit by ROSA Menezes on 01/03/25 15:13 UA Specific [place] 1.030 Last Edit by ROSA Menezes on 01/03/25 15: 13 UA Ketone Negative Last Edit [facility] on 01/03/25 15:13 UA Bilirubin 0 mg/dL Last Edit by Leonel Higgins, JOSEPHINEA on 01/03/25 15:13 UA Glucose 5 mg/dL Last Edit by Leonel Higgins [facility] on 01/03/25 15:13 Results Reviewed Results Reviewed: Laboratory Last Values Urine pH (Auto) 5.0 01/03/25 15:12 Specific [place] (Auto) 1.030 01/03/25 15:12 Urine Protein (Auto) 15 mg/dL 01/03/25 15:12 Glucose (UA)(Auto) 5 mg/dL 01/03/25 15:12 Urine Ketones (Auto) Negative 01/03/25 15:12 Urine Blood (Auto) 0 Dmitry/uL 01/03/25 15:12 Urine Nitrite (Auto) Negative 01/03/25 15:12 Urine Bilirubin (Auto) 0 mg/dL 01/03/25 15:12 Urine Urobilinogen (Auto) 3.5 mg/dL 01/03/25 15:12 Leukocyte Esterase (Auto) 0 Pablo/uL 01/03/25 15:12 Assessment & Plan Assessment & Plan Orders: Orders XR KUB 1 Year N20.0 - Calculus of kidney AMB Urinalysis Automated Today Z13.9 - Encounter for screening, unspecified Coding
--- OUTSIDE RECORDS SUMMARY | 2025-01-03 17:54 | XMS_ITS | Clinical Summary ---
Author Organization [facility] it Address [address] [place] [address] Care Team Providers Care Paper Spooler Name Role Phone Sha Mcdonald Primary Care Provider [phone] Allergies No known active allergies Medications SITagliptin [...] 01/16/2019 Obstructive sleep apnea 10/14/2017 Overview (09/22/2024): [facility] Home Polysomnogram: Date 06/30/2016; AHI 23, Unclassified apneas 0; Obstructive apneas 13; Central apneas 16; Mixed apneas 1; hypopneas 133; average oxygen saturation 94% (lowest 86% without saturations <88% for 5% or more of study) - Obstructive Sleep Apnea - moderate; mostly hypopneas with central apneas; no sleep related hypoventilation by 2016 home polysomnogram. Felix Montes epoch 0% [facility] Polysomnogram treatment study. Date 10/08/2017. SE 86 [...] HERNIA RE OTHER SURGICAL HISTORY 01/2022 PROCEDURE: [place] PYELOTOMY WITH REMOVAL CALCULUS; COMMENT: Hospitalized for [...] 2:30 PM EDT Office Visit Adult Medicine [facility] [address] [place] [address] Sha Mcdonald PA [address] [place] [address] Health Maintenance Due Date Last Done Comments DTaP,Tdap,and Td Vaccines (1 - Tdap) 1969 Pneumococcal Vaccine: 50+ Years (2 of 2 - PPSV23) 04/06/2018 02/09/2018 Zoster Vaccines (2 of 2) 04/06/2018 02/09/2018 COVID-19 Vaccine (3 - Pfizer risk series) 02/04/2021 01/07/2021, 12/10/2020 Depression Screening 09/19/2022 Falls Risk Assessment 09/19/2022 Medicare Annual Wellness Visit 09/19/2022 Social Influencers of Health Screening 09/19/2022 [...] Procedure Name Priority Date/Time Associated Diagnosis Comments EXTERNAL CLINICAL LAB 12/11/2024 EXTERNAL ULTRASOUND REPORT 12/11/2024 EXTERNAL ULTRASOUND REPORT 12/11/2024 STOOL BASED TEST Routine 08/09/2024 URINE ALBUMIN CREATININE RATIO Routine 07/28/2024 ANNUAL BMP BLOOD TEST Routine 07/28/2024 HEMOGLOBIN A1C Routine 07/28/2024 LIPID PANEL Routine 07/28/2024 DIABETES EYE EXAM Routine 06/27/2024 DIABETES FOOT EXAM Routine 06/21/2024 HEPATITIS C SCREENING Routine 09/28/2016 ABDOMINAL AORTIC ANEURYSM SCRREN Routine 04/09/2016 from Last 3 Months or Most Recently Relevant to Health Maintenance Results * External Ultrasound Report (12/11/2024) Only the most recent of2 resultswithin the time period is included. Anatomical Region Laterality Modality Ultrasound Provider Ruth [facility] IMG US PROCEDURES Final Result * External clinical lab (12/11/2024) Result [facility] Provider [facility] LAB BLOOD ORDERABLES Fin al Result * Stool Based Tests (FOBT/FIT) (08/09/2024) [facility] Colorectal Cancer Screening: Stool Based Tests abstracted ,negative Result [facility] Provider HEALTH MAINTENANCE Final Result * Urine Albumin Creatinine Ratio (07/28/2024) [facility] Urine Albumin Creatinine Ratio abstracted Result [facility] HEALTH MAINTENANCE Final Result * Annual BMP Blood Test (07/28/2024) [facility] Annual BMP Blood Test abstracted Result [facility] HEALTH MAINTENANCE Final Result * (ABNORMAL) Hemoglobin A1c (07/28/2024) [facility] Hemoglobin A1C 7.0(A) <=6.5 % Blood Venous blood specimen / Unknown Result [facility] LAB BLOOD ORDERABLES Najma l Result * Lipid panel (07/28/2024) [facility] LDL/HDL Ratio 3 0 - 4 Triglycerides 81 0 - 150 mg/dL Cholesterol 141 0 - 200 mg/dL HDL 47 >=40 mg/dL LDL Cholesterol 78 0 - 100 mg/dL Blood Venous blood specimen / Unknown Result [facility] LAB BLOOD ORDERABLES Najma l Result * Diabetes Eye Exam (06/27/2024) [facility] Diabetes: Annual Retina Eye Exam abstracted Result [facility] HEALTH MAINTENANCE Final Result * Diabetes Foot Exam (06/21/2024) Diabetes: Annual Foot Exam abstracted Historical Provider HEALTH MAINTENANCE Final Result * Hepatitis C Screening (09/28/2016) Hepatitis C Screening abstracted Historical Provider HEALTH MAINTENANCE Final Result * Abdominal Aortic Aneurysm Screen (04/09/2016) Abdominal Aortic Aneurysm (AAA) Screening abstracted Anatomical Region Laterality Modality Other Historical Provider HEALTH MAINTENANCE Final Result from Last 3 Months or Most Recently Relevant to Health Maintenance Insurance [employer] [place] [employer] Care Teams Paper Spooler Relationship Specialty Start Date End Date Sha Mcdonald PA PCP - General Internal Medicine 10/23/20
--- OUTSIDE RECORDS SUMMARY | 2025-01-03 17:54 | XMS_ITS | Encounter Summary ---
Author Organization [facility] [employer] [facility] Address [address] [place] [address] Care Team Providers Care Hoop Maker Name Role Phone Unavailable Primary Care Provider [...]
--- OUTSIDE RECORDS SUMMARY | 2025-01-03 17:54 | XMS_ITS | Clinical Summary ---
Author Organization [facility] [employer] Address [address] [place] [address] [address] [place] [address] Care Team Providers Care Religious Education Coordinator Name Role Phone Unavailable Primary Care Provider [...]
--- OUTSIDE RECORDS SUMMARY | 2025-01-03 17:54 | XMS_ITS | Encounter Summary ---
Author Organization [facility] [employer] [facility] Address [address] [place] [address] Care Team Providers Care Riding Teacher Name Role Phone Unavailable Primary Care Provider [...]
--- OUTSIDE RECORDS SUMMARY | 2025-01-03 17:54 | XMS_ITS | Encounter Summary ---
Author Organization [facility] [employer] [facility] Address [address]t [place] [address] Care Team Providers Care Drapery Worker Name Role Phone Unavailable Primary Care Provider [...]
== END 2025-01-03 15:52 | disposition home or self-care (01) ==
LOC: HO.HUSH 14:55
PROVIDERS: PCP Physician Assistant Medical; Visit Provider Urology
DX: Z13.9 Encounter for screening, unspecified (principal)

== ENCOUNTER → 2025-01-03 14:54 | Outpatient (BNVA) | payer MEDICARE, SELFPAY | PROVIDERS: PCP Physician Assistant Medical; Visit Provider Urology | DX: N20.0 Calculus of kidney (principal); N39.0 Urinary tract infection, site not specified | CPT/HCPCS: 81003; 99212 ==

== ENCOUNTER 2025-09-20 10:22 | Outpatient (AMB) | payer MEDICARE, SELFPAY ==
--- NOTE | 2025-09-20 10:44 | A.OFFVIS_ITS ---
Vital Signs 09/20/25 10:47 Height 6 ft Weight 240 lb BMI 32.5 Intake Visit Reasons: NPV [place] Ref- eval for back injection Intake Note: Patient is a 75 year old male in office today as a new patient for back pain. COMPRESHION makes the pain better MRI in scalf no numbness pain comes and goes has not had and injections or surgries on the back Allergies ciprofloxacin Allergy (Mild, Verified 09/20/25 10:50) leg pain HPI Comments Details: History of Present Illness The patient is a 75 year old male presenting with chronic low back pain. He reports having an ache in his back for approximately three years. The pain is particularly exacerbated in the morning by standing in one place for about 10 minutes, at which point it can reach a severity of 8 or 9 out of 10. His symptoms are relieved by sitting down. He also reports that both of his legs feel weak at times, particularly when walking. He has noted that leaning on a shopping cart improves his symptoms. The patient does not take any medications for pain, such as Tylenol or ibuprofen. About six months ago, he had an episode of back ache and severe leg pain, to the point he could not stand on it, which prompted a visit to the emergency room. He was diagnosed with a UTI and advised to take Tylenol for the leg pain. The patient reports being told he has some diabetes. I reviewed the referring provider's no prior to consultation. Pain Description - Onset: The patient has had back trouble for a long time, around three years. - Location: The pain is primarily in his low back. - Character: He describes the pain as an ache. - Associated Symptoms: He experiences weakness in both legs with walking, but denies pain radiating into his legs currently. - Severity: Pain reaches an 8 or 9 out of 10 when standing in one spot. - Aggravating Factors: Pain is worsened by standing, particularly for about 10 minutes in the morning. - Relieving Factors: Pain is relieved by sitting down and by leaning forward on a shopping cart. Results - MRI Spine: Findings discussed include moderate spinal canal stenosis and moderate neuroforaminal stenosis on the left, with pathology being worse on the left than the right. [facility] Medical History (Updated 09/20/25 @ 12:22 by EVANGELIST Otaes) HTN (hypertension) Diabetes A-fib Psoriasis Rheumatoid arthritis Kidney calculi Surgical History (Updated 09/17/25 @ 15:36 by Beatriz Sousa MA) History of hernia repair Family History Brother Heart disease Social History Household Members: None Housing: [facility] Do you presently have visiting nurse or other home services: No Alcohol intake: never Patient Tobacco Use Status: Never used Tobacco service: Yes Current occupational status: disabled Review of Systems Narrative Review of Systems - Musculoskeletal: Reports chronic low back ache and intermittent bilateral leg weakness with walking. - Neurological: Reports occasional bilateral leg tightness and tenderness; denies significant numbness. Physical Exam Exam Exam: Physical Exam - Back: Pain is localized to the low back. - Range of motion is non-painful with forward flexion and extension. - Neurologic: Motor strength appears intact with foot dorsiflexion/plantarflexion and hip flexion bilaterally. - Sensation to light touch is symmetric in the lower extremities. - Seated straight leg raise is positive for tightness behind the knees bilaterally but does not reproduce back or radicular pain. Vital Signs: BMI result Body Mass Index 32.5 Results Reviewed Results Reviewed: MRI lumbar spine February 2025 impression: Mild multilevel degenerative disease of the lumbar spine. Mild spinal canal stenosis at L3-4. Moderate neuroforaminal stenosis on the left at L3-4 and on the left at L5-S1. Small foraminal disc protrusion on the left at L3-4 contributes to moderate ipsilateral neuroforaminal stenosis. Small central disc protrusion at L5-S1 contribute to mild spinal canal stenosis. Assessment & Plan Assessment & Plan (1) Lumbar radiculopathy: Code(s): M54.16 - Radiculopathy, lumbar region Category: Medical (2) Spinal stenosis: Code(s): M48.00 - Spinal stenosis, site unspecified Category: Medical Qualifiers: Spinal region: lumbar Neurogenic claudication status: without neurogenic claudication Qualified Code(s): M48.061 - Spinal stenosis, lumbar region without neurogenic claudication Plan Pain Management - Affect: The patient is able to tolerate his pain and prefers to avoid surgery. - Analgesia: He does not take any pain medications, including Tylenol or ibuprofen. - Adverse Effects: Not applicable as he is not taking pain medications. - Activities of Daily Living: Pain interferes with standing for more than 10 minutes, such as when making breakfast, requiring him to sit down. - Aberrant Drug-Related Behaviors: No aberrant behaviors were noted or discussed. Plan Patient was informed and verbally consented to the use of an ambient scribe for clinic note documentation during this visit. 1. Lumbar Spinal Stenosis The patient's MRI reveals moderate spinal canal stenosis and moderate left-sided neuroforaminal stenosis, which is consistent with his symptoms of low back pain exacerbated by standing. Surgery is not considered a viable option at this time due to the absence of severe stenosis. A cortisone injection into the back was proposed as a potential treatment, with the goal of achieving at least a 50% reduction in pain for 3-6 months. The risks associated with the injection, including infection, nerve damage, and bleeding, were discussed. The patient will consider this option and can call to schedule an injection if his symptoms worsen. Other conservative management options discussed include physical therapy, congregational care pastor, and [id number] anti-inflammatories. 2. Bilateral Lower Extremity Weakness The patient's complaint of bilateral leg weakness is not fully explained by his MRI findings, as the pathology is predominantly on the left side. Differential diagnoses include vascular issues, neuropathy secondary to diabetes, and decondi tioning. It was recommended that he follow up with his primary care provider to have his vasculature checked. The patient was also encouraged to engage in leg strengthening activities, such as chair exercises or biking. Discussion Notes I reviewed the patient's MRI findings with him, explaining he has moderate spinal canal stenosis and moderate neuroforaminal stenosis, worse on the left, but no severe stenosis. I advised that he is not a surgical candidate at this time, and he expressed agreement, stating he can tolerate the pain and does not want to risk surgery. I explained that his bilateral leg weakness is unlikely to be solely from his back pathology given the MRI findings. I discussed other potential causes, including vascular issues, diabetic neuropathy, or deconditioning, and re commended he see his primary care provider for a vascular evaluation. We discussed several treatment options, including physical therapy, medications, and a lumbar epidural steroid injection. I detailed that the goal of an injection would be at least 50% pain relief for 3-6 months, and it could be repeated every 4 months. Risks of the procedure, including infection, bleeding, and nerve damage, were also discussed. The patient is not ready to proceed with an injection at this time but has established care and will call if his pain worsens. I told him I would provide him with some exercise handouts. Patient Instructions - Based on your MRI, you have moderate stenosis (narrowing) in your lower back, but it is not severe enough to require surgery at this time. - To help with your pain, you should sit down when it begins and lean on a shopping cart or other object for support when walking. - If the pain becomes worse, one option is a cortisone shot in your back, which can provide pain relief for 3-6 months. - You can also try strengthening your legs with exercises you can do in a chair or by riding a bike. - The weakness you feel in both legs may be caused by something else, such as a problem with your circulation. - Please see your primary doctor to have the circulation in your legs checked. - Call our office if your pain gets worse or if you decide you would like to try the cortisone shot. Coding Level of Care Code Tele New Pt Level 4 (48219) Diagnoses Lumbar radiculopathy M54.16 Spinal stenosis of lumbar region without neurogenic claudication M48.061 Spinal region: lumbar Neurogenic claudication status: without neurogenic claudication
[2025-09-20 10:47] VITALS: BMI 32.5
== END 2025-09-20 11:29 | disposition home or self-care (01) ==
LOC: HO.HPHYS 10:23
PROVIDERS: PCP Physician Assistant Medical; Visit Provider Physician Assistant
DX: M54.16 Radiculopathy, lumbar region (principal); M48.061 Spinal stenosis, lumbar region without neurogenic claudication
CPT/HCPCS: 99204

== ENCOUNTER → 2025-09-20 10:22 | Outpatient (BNVA) | payer MEDICARE, SELFPAY | PROVIDERS: PCP Physician Assistant Medical; Visit Provider Physician Assistant | DX: M54.16 Radiculopathy, lumbar region (principal); M48.061 Spinal stenosis, lumbar region without neurogenic claudication; R29.898 Other symptoms and signs involving the musculoskeletal system; M54.50 Low back pain, unspecified; G89.29 Other chronic pain | CPT/HCPCS: 99202 ==